=== PATIENT | female | born 1935 | race Hispanic/Latino ===

== ENCOUNTER 2021-02-15 07:13 | Inpatient (IN) | payer MEDICARE ==
[2021-02-15] MEDS ORDERED: MELATONIN 5 MG TAB PO PRN (11:43)
[2021-02-15] MEDS ORDERED: traZODone 50 MG TAB PO SCH (22:00)
[2021-02-16] MEDS ORDERED: traMADol 50 MG TAB PO ONE (00:30)
--- NOTE | 2021-02-16 10:49 | History and Physical Report ---
GP History & Physical - History of Present Illness Date of admission: 02/15/21 Date of Examination: 02/16/21 Reason for Admission: Danger to self, Danger to others, Extensive Evaluation Required, Unable to care for self History of Present Illness: Per Admission Note: Visual hallucinations ( seeing things that were not there. Delusional and combative Jillian Avelar is an 85 y/o female patient who I seen today. The patient is confused, irritable, talking to herself and making threats. She says she is "ready to kill someone just for the fun of it." She is staring at one of the workers. When asking the patient about hallucinations, she says "there are two of them, one's name is Mqiuel." She is unable to give any insight into her history. PAST PSYCHIATRIC HISTORY Unable to obtain PAST MEDICAL HISTORY: Unable to obtain Family Psychiatric History: None reported or documented SOCIAL HISTORY Unable to obtain REVIEW OF SYSTEMS Unable to obtain MENTAL STATUS EXAMINATION General Appearance and Behavior: Age appropriate, good hygiene, wearing appropriate clothes, good eye contact, irritable Cooperation: uncooperative Mood: upset Affect and affective range: angry Thought Process: illogical, impaired Thought Content: hallucinations Speech: Normal volume, Regular rate and rhythm, Suicidal Ideation: unclear Homicidal Ideation: Yes Impulse Control: Unimpaired Insight and Judgment: Poor insight and judgment, Memory: Impaired Attention: Divided Orientation: Confused Assessment (1) Dementia with Behavioral Disturbance Current Visit: Yes Status: Acute Treatment Plan Patient admitted for inpatient psychiatric evaluation, medication adjustment and close monitoring The patient's behavior, mood, sleep and appetite will be closely monitored. Patient enrolled in individual and group therapeutic sessions and encouraged to attend. Patient provided with a safe and structured environment. Patient's physical health needs will be addressed by the Hospitalist. Hospital ist Consulted Labs including CBC, CMP, Lipid profile and Hemoglobin A1C levels ordered for baseline reference Social Assessment will be completed and the Hydraulic And Plumbing Installer will work with patient and family to ensure a suitable and safe disposition Medication adjustment will be made as clinically indicated Start Olanzapine 2.5mg po daily Restarted home medications Usual Wellness Buddhist/Preservation: - Start Trazodone 50 mg po QHS & 50 mg po QHS PRN between 10 PM & 2 AM for insomnia - Start Melatonin 5 mg po QHS to promote circadian rhythm - Start [place]-3 for brain health, reduce impulsivity, and as adjunctive treatment for mood disorder, continue upon discharge given overall benefits. - Start B1 prophylaxis with 200 mg po for 5 days The patient agreed on the treatment plan, understood the risk, benefit, alternative treatment, potential consequence of no treatment, and gave informed consent. Initial Certification Inpatient psych services: I certify that the inpatient psychiatric services are required for treatment that could reasonably be expected to improve the patient's condition. Estimated days: 7 Post hospital care: primary care provider, psychiatric provider Case staffed with Dr. Rincon Legal Status: Voluntary Reaction to Hospitalization: Accepting Medications and Allergies Allergies Allergy/AdvReac Type Severity Reaction Status Date / Time Penicillins Allergy Rash Verified 02/15/21 12:31 Home Medications Medication Instructions Recorded Confirmed Last Taken Type Acetaminophen/Caff/Dihydrocod 1 each PO Q6HR PRN 02/15/21 02/15/21 Unknown History [Ssnpzaox-Mml-Gojpaksjaovct 325] Alendronate Sodium [Fosamax] 70 mg PO QWEEK 02/15/21 02/15/21 Unknown History AtorvaSTATin [Lipitor] 10 mg PO QHS 02/15/21 02/15/21 Unknown History Celecoxib 200 gm PO DAILY 02/15/21 02/15/21 Unknown History Cetirizine HCl [Cetirizine 5mg tab] 10 mg PO DAILY 02/15/21 02/15/21 Unknown History Cyanocobalamin (Vitamin B-12) 1,000 mcg PO DAILY 02/15/21 02/15/21 Unknown History [Vitamin B12] FLUoxetine HCL [PROzac] 40 mg PO QDAY 02/15/21 02/15/21 Unknown History Famotidine [Acid-Pep] 20 mg PO DAILY 02/15/21 02/15/21 Unknown History Ferrous Sulfate [Feosol] 325 mg PO QDAY 02/15/21 02/15/21 Unknown History Fluticasone [Flonase] 1 mcg BN DAILY 02/15/21 02/15/21 Unknown History Gabapentin [Neurontin] 300 mg PO TID 02/15/21 02/15/21 Unknown History Isosorbide Mononitrate [Isosorbide 30 mg PO DAILY 02/15/21 02/15/21 Unknown History Mononitrate ER] LORazepam [Lorazepam] 0.5 mg PO BID PRN 02/15/21 02/15/21 Unknown History oxyCODONE /ACETAMINOPHEN [Percocet 7.5 tab PO Q4HR 02/15/21 02/15/21 Unknown History 5/325] traZODone [Desyrel] 50 mg PO QHS 02/15/21 02/15/21 Unknown History Active Meds: Active Medications Melatonin (Melatonin 5 Mg Tab) 5 mg PO QHS PRN PRN Reason: Sleep Last Admin: 02/15/21 22:18 Dose: 5 mg Documented by: Trazodone HCl (Trazodone 50 Mg Tab) 50 mg PO QHS [facility] Last Admin: 02/15/21 21:08 Dose: 50 mg Documented by: Results - Results Labs/Vitals: Laboratory Last Values POC Glucose 136 mg/dL (70-105) H 02/15/21 16:23 Last Vital Signs Temp 97.8 F 02/16/21 09:07 Pulse 80 02/16/21 09:07 Resp 18 02/16/21 09:07 BP 132/68 02/16/21 09:07 Pulse Ox 97 02/16/21 09:07 Physical Examination - Constitutional Vitals: Vital Signs Temp Pulse Resp BP Pulse Ox 97.8 F 80 18 132/68 97 02/16/21 09:07 02/16/21 09:07 02/16/21 09:07 02/16/21 09:07 02/16/21 09:07 Temperature -Last 24 Hours Temperature 97.8 F Temperature 97.6 F Temperature 97.6 F Temperature 98.2 F Mental Status Exam - Vital signs Last Vital Signs Temp 97.8 F 02/16/21 09:07 Pulse 80 02/16/21 09:07 Resp 18 02/16/21 09:07 BP 132/68 02/16/21 09:07 Pulse Ox 97 02/16/21 09:07 Physician Certification - Certification Statement Physician Certification Statement: This is an acknowledgement statement that JILLIAN AVELAR is a 85 year old F who requires inpatient psychiatric admission for treatment which could reasonably be expected to improve the patient's condition for Estimated period of time patient will need to remain in the hospital: [ ] Plan for post-hospital care: [ ]
[2021-02-16] MEDS ORDERED: LORazepam 0.5 MG TAB PO PRN (10:53)
[2021-02-16] MEDS ORDERED: CYANOCOBALAMIN 2500 MCG PO SCH (11:00)
[2021-02-16] MEDS ORDERED: ALENDRONATE SODIUM 70 MG TAB PO SCH (12:12)
[2021-02-16] MEDS ORDERED: ONDANSETRON 8 MG ODT TAB PO PRN (12:28)
--- NOTE | 2021-02-16 12:34 | Consultation ---
History of Present Illness - Reason for Consult Consult date: 02/16/21 Medical management - History of Present Illness Reason for Admission: Danger to self, Danger to others, Extensive Evaluation Required, Unable to care for self History of Present Illness: Per Admission Note: Visual hallucinations ( seeing things that were not there. Delusional and combative Jillian Modi is an 85 y/o female patient who I seen today. The patient is confused, irritable, talking to herself and making threats. She says she is "ready to kill someone just for the fun of it." She is staring at one of the workers. When asking the patient about hallucinations, she says "there are two of them, one's name is Miquel." She is unable to give any insight into her history. PAST PSYCHIATRIC HISTORY Unable to obtain PAST MEDICAL HISTORY: Anemia, CAD, osteoporosis Family Psychiatric History: None reported or documented SOCIAL HISTORY Unable to obtain Past History Past Medical History: anemia, CAD, other (Osteoporosis) Medications and Allergies Allergies Allergy/AdvReac Type Severity Reaction Status Date / Time Penicillins Allergy Rash Verified 02/15/21 12:31 Home Medications Medication Instructions Recorded Confirmed Last Taken Type Acetaminophen/Caff/Dihydrocod 1 each PO Q6HR PRN 02/15/21 02/15/21 Unknown History [Jumfwvuf-Ebs-Ydovqtiuyyneo 325] Alendronate Sodium [Fosamax] 70 mg PO QWEEK 02/15/21 02/15/21 Unknown History AtorvaSTATin [Lipitor] 10 mg PO QHS 02/15/21 02/15/21 Unknown History Celecoxib 200 gm PO DAILY 02/15/21 02/15/21 Unknown History Cetirizine HCl [Cetirizine 5mg tab] 10 mg PO DAILY 02/15/21 02/15/21 Unknown History Cyanocobalamin (Vitamin B-12) 1,000 mcg PO DAILY 02/15/21 02/15/21 Unknown History [Vitamin B12] FLUoxetine HCL [PROzac] 40 mg PO QDAY 02/15/21 02/15/21 Unknown History Famotidine [Acid-Pep] 20 mg PO DAILY 02/15/21 02/15/21 Unknown History Ferrous Sulfate [Feosol] 325 mg PO QDAY 02/15/21 02/15/21 Unknown History Fluticasone [Flonase] 1 mcg BN DAILY 02/15/21 02/15/21 Unknown History Gabapentin [Neurontin] 300 mg PO TID 02/15/21 02/15/21 Unknown History Isosorbide Mononitrate [Isosorbide 30 mg PO DAILY 02/15/21 02/15/21 Unknown History Mononitrate ER] LORazepam [Lorazepam] 0.5 mg PO BID PRN 02/15/21 02/15/21 Unknown History oxyCODONE /ACETAMINOPHEN [Percocet 7.5 tab PO Q4HR 02/15/21 02/15/21 Unknown History 5/325] traZODone [Desyrel] 50 mg PO QHS 02/15/21 02/15/21 Unknown History Active Meds: Active Medications Alendronate Sodium (Alendronate Sodium 70 Mg Tab) 70 mg PO Mo JEFFREY Atorvastatin Calcium (Atorvastatin 10 Mg Tab) 10 mg PO QHS [facility] Celecoxib (Celecoxib 200 Mg Cap) 200 mg PO DAILY [facility] Cetirizine HCl (Cetirizine 10 Mg Tab) 10 mg PO DAILY [facility] Famotidine (Famotidine 20 Mg Tab) 20 mg PO DAILY [facility] Ferrous Sulfate (Ferrous Sulfate 325 Mg Tab) 325 mg PO QDAY [facility] Fluticasone Propionate (Fluticasone Propionate Nasal Blue 16 Gm) 50 mcg NS DAILY [facility] Gabapentin (Gabapentin 300 Mg Cap) 300 mg PO TID [facility] Isosorbide Mononitrate (Isosorbide Mononitrate Er 30 Mg Tab) 30 mg PO DAILY [facility] Lorazepam (Lorazepam 0.5 Mg Tab) 0.5 mg PO BID PRN PRN Reason: Agitation Melatonin (Melatonin 5 Mg Tab) 5 mg PO QHS PRN PRN Reason: Sleep Last Admin: 02/15/21 22:18 Dose: 5 mg Documented by: Miscellaneous Medication (Acetaminophen/Caff/Dihydrocod [Lllqybgz-Gpm-Fknlszdgmyinq 325]) 1 each PO Q6HR PRN PRN Reason: Pain, Mild (1-3) Miscellaneous Medication (Cyanocobalamin (Vitamin B-12) [Vitamin B12]) 1,000 mcg PO DAILY [facility] Miscellaneous Medication (Fluoxetine Hcl [Prozac]) 40 mg PO QDAY [facility] Olanzapine (Olanzapine 2.5 Mg Tab) 2.5 mg PO QDAY [facility] Ondansetron HCl (Ondansetron 4 Mg Odt Tab) 4 mg PO Q8H PRN PRN Reason: Nausea And Vomiting Ondansetron HCl (Ondansetron 8 Mg Odt Tab) 8 mg PO Q8H PRN PRN Reason: Nausea And Vomiting Pantoprazole Sodium (Pantoprazole 40 Mg Tab) 40 mg PO QDAC [facility] Trazodone HCl (Trazodone 50 Mg Tab) 50 mg PO QHS [facility] Review of Systems Gastrointestinal: abdominal pain, nausea, vomiting Musculoskeletal: other (Left shoulder pain) Exam - Constitutional Vitals: Temp Pulse Resp BP Pulse Ox 97.8 F 80 18 132/68 97 02/16/21 09:07 02/16/21 09:07 02/16/21 09:07 02/16/21 09:07 02/16/21 09:07 General appearance: Present: no acute distress, well-nourished - EENT Eyes: Present: PERRL ENT: hearing intact, clear oral mucosa - Neck Neck: Present: supple, normal ROM - Respiratory Respiratory effort: normal Respiratory: bilateral: diminished - Cardiovascular Heart Sounds: Present: S1 & S2. Absent: rub, click - Extremities Extremities: pulses symmetrical, No edema Peripheral Pulses: within normal limits - Abdominal General gastrointestinal: Present: soft, non-tender, non-distended, normal bowel sounds Female genitourinary: Present: normal - Integumentary Integumentary: Present: clear, warm, dry - Musculoskeletal Musculoskeletal: gait normal, strength equal bilaterally - Psychiatric Psychiatric: agitated - Neurologic Neurologic: CNII-XII intact, moves all extremities - Allied Health Allied health notes reviewed: nursing Results - Labs Labs: Abnormal lab results 02/15/21 Range/Units 16:23 POC Glucose 136 H (70-105) mg/dL Assessment and Plan Assessment and plan 1. Visual hallucination9 seeing things that were not there). Delusional combative Psych medication as per psych doctors Lorazepam 0.5 mg p.o. twice daily as needed Fluoxetine 40 mg p.o. daily. Trazodone 50 mg p.o. nightly 2. Nausea vomiting abdominal pain Protonix 40 mg p.o. daily Zofran 4 mg p.o. every 8 hours as needed We will check CBC BMP 3. Anemia patient is on ferrous sulfate 325 mg p.o. daily. Vitamin B12 1000 mcg p.o. daily 4. CAD Patient is on Imdur 30 mg p.o. daily Lipitor 10 mg p.o. nightly 5. Left shoulder pain patient is on celecoxib 200 mg p.o. daily We will do a x-ray of the left shoulder 6. Osteoporosis Fosamax 70 mg p.o. weekly . Home Medications Medication Instructions Recorded Confirmed Last Taken Type Acetaminophen/Caff/Dihydrocod 1 each PO Q6HR PRN 02/15/21 02/15/21 Unknown History [Oeqzehrw-Mkj-Zpnurycoenhgg 325] Alendronate Sodium [Fosamax] 70 mg PO QWEEK 02/15/21 02/15/21 Unknown History AtorvaSTATin [Lipitor] 10 mg PO QHS 02/15/21 02/15/21 Unknown History Celecoxib 200 gm PO DAILY 02/15/21 02/15/21 Unknown History Cetirizine HCl [Cetirizine 5mg tab] 10 mg PO DAILY 02/15/21 02/15/21 Unknown History Cyanocobalamin (Vitamin B-12) 1,000 mcg PO DAILY 02/15/21 02/15/21 Unknown History [Vitamin B12] FLUoxetine HCL [PROzac] 40 mg PO QDAY 02/15/21 02/15/21 Unknown History Famotidine [Acid-Pep] 20 mg PO DAILY 02/15/21 02/15/21 Unknown History Ferrous Sulfate [Feosol] 325 mg PO QDAY 02/15/21 02/15/21 Unknown History Fluticasone [Flonase] 1 mcg BN DAILY 02/15/21 02/15/21 Unknown History Gabapentin [Neurontin] 300 mg PO TID 02/15/21 02/15/21 Unknown History Isosorbide Mononitrate [Isosorbide 30 mg PO DAILY 02/15/21 02/15/21 Unknown History Mononitrate ER] LORazepam [Lorazepam] 0.5 mg PO BID PRN 02/15/21 02/15/21 Unknown History oxyCODONE /ACETAMINOPHEN [Percocet 7.5 tab PO Q4HR 02/15/21 02/15/21 Unknown History 5/325] traZODone [Desyrel] 50 mg PO QHS 02/15/21 02/15/21 Unknown History
[2021-02-16] MEDS: GABAPENTIN 300 MG CAP PO SCH ×2 (13:37→20:59)
[2021-02-16] MEDS: FLUoxetine 20 MG CAP PO SCH (13:37)
[2021-02-16] MEDS: FERROUS SULFATE 325 MG TAB PO SCH (13:37)
[2021-02-16] MEDS: ONDANSETRON 4 MG ODT TAB PO PRN (13:37)
[2021-02-16] MEDS: FAMOTIDINE 20 MG TAB PO SCH (13:38)
[2021-02-16] MEDS: CETIRIZINE 10 MG TAB PO SCH (13:38)
[2021-02-16] MEDS: traZODone 50 MG TAB PO SCH (21:21)
[2021-02-17] MEDS: FAMOTIDINE 20 MG TAB PO SCH (09:08)
[2021-02-17] MEDS: ONDANSETRON 4 MG ODT TAB PO PRN (09:08)
[2021-02-17] MEDS: FERROUS SULFATE 325 MG TAB PO SCH (09:08)
[2021-02-17] MEDS: GABAPENTIN 300 MG CAP PO SCH ×3 (09:08→20:44)
[2021-02-17] MEDS: FLUoxetine 20 MG CAP PO SCH (09:08)
[2021-02-17] MEDS: CYANOCOBALAMIN (VIT B-12) 1000 MCG TAB PO SCH (09:08)
[2021-02-17] MEDS: CELECOXIB 200 MG CAP PO SCH (09:09)
[2021-02-17] MEDS: FLUTICASONE PROPIONATE NASAL SPRAY 16 GM NS SCH (09:12)
[2021-02-17] MEDS: PANTOPRAZOLE 40 MG TAB PO SCH (09:15)
[2021-02-17] MEDS: CETIRIZINE 10 MG TAB PO SCH (09:15)
--- NOTE | 2021-02-17 10:59 | Progress Note ---
Subjective Date of service: 02/17/21 Principal diagnosis: Dementia with Behavior Disturabance Subjective Comment: Per Nurse Note: Patient is alert and oriented to person, calm and cooperative, patient was irritable this morning, pt was observed taking to her self, and very intrusive, she was medication compliant, poor appetite, vomited x1 few hrs after breakfast, pt was seen by the hospitalist. Zofran 4mg po given as ordered with good effect, saltine crackers with soup and fluid offered, pt tolerate well, no distress noted. will continue to monitor. The patient was seen today, she says she's doing okay and is tired. The patient is still making threats. She denies suicidal thoughts, but when asking the patient if she wanted to hurt anyone else, she replies "yes, I do. I want to kill someone." REVIEW OF SYSTEMS Unable to obtain MENTAL STATUS EXAMINATION General Appearance and Behavior: Age appropriate, good hygiene, wearing appropriate clothes, good eye contact, irritable Cooperation: uncooperative Mood: upset Affect and affective range: angry Thought Process: illogical, impaired Thought Content: hallucinations Speech: Normal volume, Regular rate and rhythm, Suicidal Ideation: unclear Homicidal Ideation: Yes Impulse Control: Unimpaired Insight and Judgment: Poor insight and judgment, Memory: Impaired Attention: Divided Orientation: Confused Assessment (1) Dementia with Behavioral Disturbance Current Visit: Yes Status: Acute Treatment Plan Patient admitted for inpatient psychiatric evaluation, medication adjustment and close monitoring The patient's behavior, mood, sleep and appetite will be closely monitored. Patient enrolled in individual and group therapeutic sessions and encouraged to attend. Patient provided with a safe and structured environment. Patient's physical health needs will be addressed by the Hospitalist. Hospitalist Consulted Labs including CBC, CMP, Lipid profile and Hemoglobin A1C levels ordered for baseline reference Social Assessment will be completed and the Butting Saw Operator will work with patient and family to ensure a suitable and safe disposition Medication adjustment will be made as clinically indicated Increase Olanzapine 5mg po daily yesterday Start Mirtazepin 7.5mg po qhs Usual Wellness Jain/Preservation: - Start Trazodone 50 mg po QHS & 50 mg po QHS PRN between 10 PM & 2 AM for insomnia - Start Melatonin 5 mg po QHS to promote circadian rhythm - Start [place]-3 for brain health, reduce impulsivity, and as adjunctive treatment for mood disorder, continue upon discharge given overall benefits. - Start B1 prophylaxis with 200 mg po for 5 days The patient agreed on the treatment plan, understood the risk, benefit, alternative treatment, potential consequence of no treatment, and gave informed consent. Initial Certification Inpatient psych services: I certify that the inpatient psychiatric services are required for treatment that could reasonably be expected to improve the patient's condition. Estimated days: 7 Post hospital care: primary care provider, psychiatric provider Case staffed with Dr. Rincon Medications and Allergies Allergies Allergy/AdvReac Type Severity Reaction Status Date / Time Penicillins Allergy Rash Verified 02/15/21 12:31 Home Medications Medication Instructions Recorded Confirmed Last Taken Type Acetaminophen/Caff/Dihydrocod 1 each PO Q6HR PRN 02/15/21 02/15/21 Unknown History [Uxnxtqxl-Gvs-Xacutsmisjjgm 325] Alendronate Sodium [Fosamax] 70 mg PO QWEEK 02/15/21 02/15/21 Unknown History AtorvaSTATin [Lipitor] 10 mg PO QHS 02/15/21 02/15/21 Unknown History Celecoxib 200 gm PO DAILY 02/15/21 02/15/21 Unknown History Cetirizine HCl [Cetirizine 5mg tab] 10 mg PO DAILY 02/15/21 02/15/21 Unknown History Cyanocobalamin (Vitamin B-12) 1,000 mcg PO DAILY 02/15/21 02/15/21 Unknown History [Vitamin B12] FLUoxetine HCL [PROzac] 40 mg PO QDAY 02/15/21 02/15/21 Unknown History Famotidine [Acid-Pep] 20 mg PO DAILY 02/15/21 02/15/21 Unknown History Ferrous Sulfate [Feosol] 325 mg PO QDAY 02/15/21 02/15/21 Unknown History Fluticasone [Flonase] 1 mcg BN DAILY 02/15/21 02/15/21 Unknown History Gabapentin [Neurontin] 300 mg PO TID 02/15/21 02/15/21 Unknown History Isosorbide Mononitrate [Isosorbide 30 mg PO DAILY 02/15/21 02/15/21 Unknown History Mononitrate ER] LORazepam [Lorazepam] 0.5 mg PO BID PRN 02/15/21 02/15/21 Unknown History oxyCODONE /ACETAMINOPHEN [Percocet 7.5 tab PO Q4HR 02/15/21 02/15/21 Unknown History 5/325] traZODone [Desyrel] 50 mg PO QHS 02/15/21 02/15/21 Unknown History Active Meds: Active Medications Alendronate Sodium (Alendronate Sodium 70 Mg Tab) 70 mg PO Mo [facility] Atorvastatin Calcium (Atorvastatin 10 Mg Tab) 10 mg PO QHS [facility] Last Admin: 02/16/21 21:21 Dose: 10 mg Documented by: Celecoxib (Celecoxib 200 Mg Cap) 200 mg PO DAILY [facility] Last Admin: 02/17/21 09:09 Dose: 200 mg Documented by: Cetirizine HCl (Cetirizine 10 Mg Tab) 10 mg PO DAILY [facility] Last Admin: 02/17/21 09:15 Dose: 10 mg Documented by: Cyanocobalamin (Cyanocobalamin (Vit B-12) 1000 Mcg Tab) 1,000 mcg PO DAILY [facility] Last Admin: 02/17/21 09:08 Dose: 1,000 mcg Documented by: Famotidine (Famotidine 20 Mg Tab) 20 mg PO DAILY [facility] Last Admin: 02/17/21 09:08 Dose: 20 mg Documented by: Ferrous Sulfate (Ferrous Sulfate 325 Mg Tab) 325 mg PO QDAY [facility] Last Admin: 02/17/21 09:08 Dose: 325 mg Documented by: Fluoxetine HCl (Fluoxetine 20 Mg Cap) 40 mg PO QDAY [facility] Last Admin: 02/17/21 09:08 Dose: 40 mg Documented by: Fluticasone Propionate (Fluticasone Propionate Nasal [place] 16 Gm) 50 mcg NS DAILY [facility] Last Admin: 02/17/21 09:12 Dose: 50 mcg Documented by: Gabapentin (Gabapentin 300 Mg Cap) 300 mg PO TID [facility] Last Admin: 02/17/21 09:08 Dose: 300 mg Documented by: Isosorbide Mononitrate (Isosorbide Mononitrate Er 30 Mg Tab) 30 mg PO DAILY [facility] Last Admin: 02/17/21 09:10 Dose: 30 mg Documented by: Lorazepam (Lorazepam 0.5 Mg Tab) 0.5 mg PO BID PRN PRN Reason: Agitation Melatonin (Melatonin 5 Mg Tab) 5 mg PO QHS PRN PRN Reason: Sleep Last Admin: 02/15/21 22:18 Dose: 5 mg Documented by: Miscellaneous Medication (Acetaminophen/Caff/Dihydrocod [Cnoyabwy-Eak-Mb hydrocodein 325]) 1 each PO Q6HR PRN PRN Reason: Pain, Mild (1-3) Olanzapine (Olanzapine 2.5 Mg Tab) 2.5 mg PO QDAY [facility] Last Admin: 02/17/21 09:08 Dose: 2.5 mg Documented by: Ondansetron HCl (Ondansetron 4 Mg Odt Tab) 4 mg PO Q8H PRN PRN Reason: Nausea And Vomiting Last Admin: 02/17/21 09:08 Dose: 4 mg Documented by: Ondansetron HCl (Ondansetron 8 Mg Odt Tab) 8 mg PO Q8H PRN PRN Reason: Nausea And Vomiting Pantoprazole Sodium (Pantoprazole 40 Mg Tab) 40 mg PO QDAC [facility] Last Admin: 02/17/21 09:15 Dose: 40 mg Documented by: Trazodone HCl (Trazodone 50 Mg Tab) 50 mg PO QHS [facility] Last Admin: 02/16/21 21:21 Dose: 50 mg Documented by: Results - Results Labs/Vitals: Laboratory Last Values POC Glucose 136 mg/dL (70-105) H 02/15/21 16:23 Hemoglobin A1c 5.4 % (4-6) 02/17/21 09:54 Last Vital Signs Temp 98.4 F 02/17/21 07:32 Pulse 84 02/17/21 09:10 Resp 18 02/17/21 09:09 BP 141/80 02/17/21 09:10 Pulse Ox 97 02/17/21 07:32
[2021-02-17 11:02] LABS: Basophils % (Auto) 0.5 % (0.0-1.8); Eosinophils # (Auto) 0.1 K/mm3 (0.0-0.4); Hematocrit 43.1 % (30.3-42.9); Hemoglobin 14.3 gm/dl (10.1-14.3); Lymphocytes % (Auto) 18.7 % (13.4-35.0); Mean Corpuscular HGB Conc 33 % (30-34); Mean Corpuscular Volume 88 fl (79-97); Monocytes # (Auto) 0.6 K/mm3 (0.0-0.8); Monocytes % (Auto) 10.1 % (0.0-7.3); Platelet Count 228 K/mm3 (140-440); Red Cell Distribution Width 16.3 % (13.2-15.2)
[2021-02-17 11:10] LABS: Albumin 3.7 g/dL (3.9-5); Calcium 9.9 mg/dL (8.4-10.2); Chol/HDL Ratio 3.77 %
--- NOTE | 2021-02-17 11:35 | Progress Note ---
Assessment and Plan - Patient Problems (1) Vascular dementia with behavior disturbance Current Visit: Yes Status: Acute Plan to address problem: Verbal prompting, verbal redirection, benzodiazepine therapy as clinically indicated. (2) Cerebral atherosclerosis Current Visit: Yes Status: Acute Plan to address problem: Risk factor reduction, antiplatelet therapy as clinically indicated, supportive care. (3) Hypertension Current Visit: Yes Status: Acute Qualifiers: Hypertension type: essential hypertension Qualified Code(s): I10 - Essential (primary) hypertension Plan to address problem: Monitor blood pressure every shift, continue medical management. (4) CAD (coronary artery disease) Current Visit: Yes Status: Acute Plan to address problem: Antiplatelet therapy as clinically indicated, risk factor reduction, supportive care. (5) Osteoporosis Current Visit: Yes Status: Acute Plan to address problem: Continue alendronate, supportive care. History Interval history: 85 YO Female with Vascular Dementia with Behavioral Disturbance, Cerebral Atherosclerosis, Anemia, CAD, Osteoperosis admitted to [facility] for Psychiatric stabilization. Patient resting comfortably while sitting in the dayroom. No reported nursing events. Patient denies pain. Hospitalist Physical - Constitutional Vitals: Temp Pulse Resp BP Pulse Ox 98.4 F 84 18 141/80 97 02/17/21 07:32 02/17/21 09:10 02/17/21 09:09 02/17/21 09:10 02/17/21 07:32 General appearance: Present: no acute distress, well-nourished - EENT Eyes: Present: PERRL ENT: hearing decreased - Neck Neck: Present: supple - Respiratory Respiratory effort: normal Respiratory: bilateral: CTA - Cardiovascular Rhythm: regular Heart Sounds: Present: S1 & S2 - Extremities Extremities: no ischemia Peripheral Pulses: within normal limits - Abdominal General gastrointestinal: soft, non-tender, non-distended - Integumentary Integumentary: Present: clear, dry - Psychiatric Psychiatric: cooperative - Neurologic Neurologic: CNII-XII intact Results - Labs CBC & Chem 7: 02/17/21 09:54 02/17/21 09:54 Labs: Laboratory Last Values WBC 5.6 K/mm3 (4.5-11.0) 02/17/21 09:54 RBC 4.90 M/mm3 (3.65-5.03) 02/17/21 09:54 Hgb 14.3 gm/dl (10.1-14.3) 02/17/21 09:54 Hct 43.1 % (30.3-42.9) H 02/17/21 09:54 MCV 88 fl (79-97) 02/17/21 09:54 MCH 29 pg (28-32) 02/17/21 09:54 MCHC 33 % (30-34) 02/17/21 09:54 RDW 16.3 % (13.2-15.2) H 02/17/21 09:54 Plt Count 228 K/mm3 (140-440) 02/17/21 09:54 Lymph % (Auto) 18.7 % (13.4-35.0) 02/17/21 09:54 [place] % (Auto) 10.1 % (0.0-7.3) H 02/17/21 09:54 Eos % (Auto) 1.0 % (0.0-4.3) 02/17/21 09:54 Baso % (Auto) 0.5 % (0.0-1.8) 02/17/21 09:54 Lymph # (Auto) 1.0 K/mm3 (1.2-5.4) L 02/17/21 09:54 [place] # (Auto) 0.6 K/mm3 (0.0-0.8) 02/17/21 09:54 Eos # (Auto) 0.1 K/mm3 (0.0-0.4) 02/17/21 09:54 Baso # (Auto) 0.0 K/mm3 (0.0-0.1) 02/17/21 09:54 Seg Neutrophils % 69.7 % (40.0-70.0) 02/17/21 09:54 Seg Neutrophils # 3.9 K/mm3 (1.8-7.7) 02/17/21 09:54 Sodium 138 mmol/L (137-145) 02/17/21 09:54 Potassium 4.5 mmol/L (3.6-5.0) 02/17/21 09:54 Chloride 103.9 mmol/L (98-107) 02/17/21 09:54 Carbon Dioxide 25 mmol/L (22-30) 02/17/21 09:54 Anion Gap 14 mmol/L 02/17/21 09:54 BUN 22 mg/dL (7-17) H 02/17/21 09:54 Creatinine 1.1 mg/dL (0.6-1.2) 02/17/21 09:54 Estimated GFR 47 ml/min 02/17/21 09:54 BUN/Creatinine Ratio 20 % 02/17/21 09:54 Glucose 95 mg/dL (65-100) 02/17/21 09:54 POC Glucose 136 mg/dL (70-105) H 02/15/21 16:23 Hemoglobin A1c 5.4 % (4-6) 02/17/21 09:54 Calcium 9.9 mg/dL (8.4-10.2) 02/17/21 09:54 Total Bilirubin 0.50 mg/dL (0.1-1.2) 02/17/21 09:54 AST 89 units/L (5-40) H 02/17/21 09:54 ALT 57 units/L (7-56) H 02/17/21 09:54 Alkaline Phosphatase 105 units/L (35-129) 02/17/21 09:54 Total Protein 7.5 g/dL (6.3-8.2) 02/17/21 09:54 Albumin 3.7 g/dL (3.9-5) L 02/17/21 09:54 Albumin/Globulin Ratio 1.0 % 02/17/21 09:54 Triglycerides 101 mg/dL (2-149) 02/17/21 09:54 Cholesterol 181 mg/dL (50-199) 02/17/21 09:54 LDL Cholesterol Direct 119 mg/dL (50-130) 02/17/21 09:54 HDL Cholesterol 48 mg/dL (40-59) 02/17/21 09:54 Cholesterol/HDL Ratio 3.77 % 02/17/21 09:54 TSH 1.050 mlU/mL (0.270-4.200) 02/17/21 09:54 Shankar/IV: Voiding Method Toilet Active Medications - Current Medications Current Medications: Generic Name Dose Route Start Last Admin Trade Name Freq PRN Reason Stop Dose Admin Alendronate Sodium 70 mg 02/23/21 06:30 Alendronate Sodium 70 Mg Tab PO Mo JEFFREY Atorvastatin Calcium 10 mg 02/16/21 22:00 02/16/21 21:21 Atorvastatin 10 Mg Tab PO 10 mg QHS JEFFREY Administration Celecoxib 200 mg 02/17/21 10:00 02/17/21 09:09 Celecoxib 200 Mg Cap PO 200 mg DAILY JEFFREY Administration Cetirizine HCl 10 mg 02/16/21 11:00 02/17/21 09:15 Cetirizine 10 Mg Tab PO 10 mg DAILY JEFFREY Administration Cyanocobalamin 1,000 mcg 02/17/21 10:00 02/17/21 09:08 Cyanocobalamin (Vit B-12) 1000 Mcg Tab PO 1,000 mcg DAILY JEFFREY Administration Famotidine 20 mg 02/16/21 11:00 02/17/21 09:08 Famotidine 20 Mg Tab PO 20 mg DAILY JEFFREY Administration Ferrous Sulfate 325 mg 02/16/21 11:00 02/17/21 09:08 Ferrous Sulfate 325 Mg Tab PO 325 mg QDAY JEFFREY Administration Fluoxetine HCl 40 mg 02/16/21 11:00 02/17/21 09:08 Fluoxetine 20 Mg Cap PO 40 mg QDAY JEFFREY Administration Fluticasone Propionate 50 mcg 02/17/21 10:00 02/17/21 09:12 Fluticasone Propionate Nasal [place] 16 Gm NS 50 mcg DAILY JEFFREY Administration Gabapentin 300 mg 02/16/21 14:00 02/17/21 09:08 Gabapentin 300 Mg Cap PO 300 mg TID JEFFREY Administration Isosorbide Mononitrate 30 mg 02/16/21 11:00 02/17/21 09:10 Isosorbide Mononitrate Er 30 Mg Tab PO 30 mg DAILY JEFFREY Administration Lorazepam 0.5 mg 02/16/21 10:53 Lorazepam 0.5 Mg Tab PO BID PRN Agitation Melatonin 5 mg 02/15/21 11:43 02/15/21 22:18 Melatonin 5 Mg Tab PO 5 mg QHS PRN Administration Sleep Mirtazapine 7.5 mg 02/17/21 22:00 Mirtazapine 15 Mg Tab PO QHS [facility] Miscellaneous Medication 1 each 02/16/21 10:53 Acetaminophen/Caff/Dihydrocod [Ayrbxlvp-Avw-Kzxnxngfdehms 325] PO Q6HR PRN Pain, Mild (1-3) Olanzapine 5 mg 02/18/21 10:00 Olanzapine 5 Mg Tab PO QDAY [facility] Ondansetron HCl 4 mg 02/16/21 11:53 02/17/21 09:08 Ondansetron 4 Mg Odt Tab PO 4 mg Q8H PRN Administration Nausea And Vomiting Ondansetron HCl 8 mg 02/16/21 12:28 Ondansetron 8 Mg Odt Tab PO Q8H PRN Nausea And Vomiting Pantoprazole Sodium 40 mg 02/17/21 07:30 02/17/21 09:15 Pantoprazole 40 Mg Tab PO 40 mg QDAC JEFFREY Administration Trazodone HCl 50 mg 02/16/21 22:00 02/16/21 21:21 Trazodone 50 Mg Tab PO 50 mg QHS JEFFREY Administration
[2021-02-17] MEDS: MIRTAZAPINE 15 MG TAB PO SCH (21:20)
[2021-02-17] MEDS: traZODone 50 MG TAB PO SCH (21:21)
--- NOTE | 2021-02-18 09:24 | Progress Note ---
Subjective Date of service: 02/18/21 Principal diagnosis: Dementia with Behavior Disturabance Subjective Comment: The patient was seen today, she is sitting at the table talking loudly to herself. She is changing her voice like the characters she is referring to. She is also having auditory hallucinations. She asks me who is that standing behind me. There was no one there. She verbalized feeling suicidal when asked. But denies homicidal ideation this time. REVIEW OF SYSTEMS Unable to obtain MENTAL STATUS EXAMINATION General Appearance and Behavior: Age appropriate, good hygiene, wearing appropriate clothes, good eye contact, irritable Cooperation: uncooperative Mood: upset Affect and affective range: angry Thought Process: illogical, impaired Thought Content: hallucinations Speech: Normal volume, Regular rate and rhythm, Suicidal Ideation: unclear Homicidal Ideation: Yes Impulse Control: Unimpaired Insight and Judgment: Poor insight and judgment, Memory: Impaired Attention: Divided Orientation: Confused Assessment (1) Dementia with Behavioral Disturbance Current Visit: Yes Status: Acute Treatment Plan Patient admitted for inpatient psychiatric evaluation, medication adjustment and close monitoring The patient's behavior, mood, sleep and appetite will be closely monitored. Patient enrolled in individual and group therapeutic sessions and encouraged to attend. Patient provided with a safe and structured environment. Patient's physical health needs will be addressed by the Hospitalist. Hospitalist Consulted Labs including CBC, CMP, Lipid profile and Hemoglobin A1C levels ordered for baseline reference Social Assessment will be completed and the Commercial Construction Superintendent will work with patient and family to ensure a suitable and safe disposition Medication adjustment will be made as clinically indicated Increase Olanzapine 7.5mg po daily today Start Mirtazepin 7.5mg po qhs yesterday Usual Wellness [employer]/Preservation: - Start Trazodone 50 mg po QHS & 50 mg po QHS PRN between 10 PM & 2 AM for insomnia - Start Melatonin 5 mg po QHS to promote circadian rhythm - Start [place]-3 for brain health, reduce impulsivity, and as adjunctive treatment for mood disorder, continue upon discharge given overall benefits. - Start B1 prophylaxis with 200 mg po for 5 days The patient agreed on the treatment plan, understood the risk, benefit, alternative treatment, potential consequence of no treatment, and gave informed consent. Initial Certification Inpatient psych services: I certify that the inpatient psychiatric services are required for treatment that could reasonably be expected to improve the patient's condition. Estimated days: 5 Post hospital care: primary care provider, psychiatric provider Case staffed with Dr. Rincon Medications and Allergies Allergies Allergy/AdvReac Type Severity Reaction Status Date / Time Penicillins Allergy Rash Verified 02/15/21 12:31 Home Medications Medication Instructions Recorded Confirmed Last Taken Type Acetaminophen/Caff/Dihydrocod 1 each PO Q6HR PRN 02/15/21 02/15/21 Unknown History [Nqqrmjvv-Ljc-Mhopmzumfaxnv 325] Alendronate Sodium [Fosamax] 70 mg PO QWEEK 02/15/21 02/15/21 Unknown History AtorvaSTATin [Lipitor] 10 mg PO QHS 02/15/21 02/15/21 Unknown History Celecoxib 200 gm PO DAILY 02/15/21 02/15/21 Unknown History Cetirizine HCl [Cetirizine 5mg tab] 10 mg PO DAILY 02/15/21 02/15/21 Unknown History Cyanocobalamin (Vitamin B-12) 1,000 mcg PO DAILY 02/15/21 02/15/21 Unknown History [Vitamin B12] FLUoxetine HCL [PROzac] 40 mg PO QDAY 02/15/21 02/15/21 Unknown History Famotidine [Acid-Pep] 20 mg PO DAILY 02/15/21 02/15/21 Unknown History Ferrous Sulfate [Feosol] 325 mg PO QDAY 02/15/21 02/15/21 Unknown History Fluticasone [Flonase] 1 mcg BN DAILY 02/15/21 02/15/21 Unknown History Gabapentin [Neurontin] 300 mg PO TID 02/15/21 02/15/21 Unknown History Isosorbide Mononitrate [Isosorbide 30 mg PO DAILY 02/15/21 02/15/21 Unknown History Mononitrate ER] LORazepam [Lorazepam] 0.5 mg PO BID PRN 02/15/21 02/15/21 Unknown History oxyCODONE /ACETAMINOPHEN [Percocet 7.5 tab PO Q4HR 02/15/21 02/15/21 Unknown History 5/325] traZODone [Desyrel] 50 mg PO QHS 02/15/21 02/15/21 Unknown History Active Meds: Active Medications Alendronate Sodium (Alendronate Sodium 70 Mg Tab) 70 mg PO Mo JEFFREY Atorvastatin Calcium (Atorvastatin 10 Mg Tab) 10 mg PO QHS ON LICENSE OF [facility] Last Admin: 02/17/21 21:21 Dose: 10 mg Documented by: Celecoxib (Celecoxib 200 Mg Cap) 200 mg PO DAILY ON LICENSE OF [facility] Last Admin: 02/17/21 09:09 Dose: 200 mg Documented by: Cetirizine HCl (Cetirizine 10 Mg Tab) 10 mg PO DAILY ON LICENSE OF [facility] Last Admin: 02/17/21 09:15 Dose: 10 mg Documented by: Cyanocobalamin (Cyanocobalamin (Vit B-12) 1000 Mcg Tab) 1,000 mcg PO DAILY ON [facility] OF [facility] Last Admin: 02/17/21 09:08 Dose: 1,000 mcg Documented by: Famotidine (Famotidine 20 Mg Tab) 20 mg PO DAILY ON LICENSE OF [facility] Last Admin: 02/17/21 09:08 Dose: 20 mg Documented by: Ferrous Sulfate (Ferrous Sulfate 325 Mg Tab) 325 mg PO QDAY ON LICENSE OF [facility] Last Admin: 02/17/21 09:08 Dose: 325 mg Documented by: Fluoxetine HCl (Fluoxetine 20 Mg Cap) 40 mg PO QDAY ON LICENSE OF [facility] Last Admin: 02/17/21 09:08 Dose: 40 mg Documented by: Fluticasone Propionate (Fluticasone Propionate Nasal [place] 16 Gm) 50 mcg NS DAILY ON [facility] OF [facility] Last Admin: 02/17/21 09:12 Dose: 50 mcg Documented by: Gabapentin (Gabapentin 300 Mg Cap) 300 mg PO TID ON [facility] OF [facility] Last Admin: 02/17/21 20:44 Dose: 300 mg Documented by: Isosorbide Mononitrate (Isosorbide Mononitrate Er 30 Mg Tab) 30 mg PO DAILY ON [facility] Last Admin: 02/17/21 09:10 Dose: 30 mg Documented by: Lorazepam (Lorazepam 0.5 Mg Tab) 0.5 mg PO BID PRN PRN Reason: Agitation Melatonin (Melatonin 5 Mg Tab) 5 mg PO QHS PRN PRN Reason: Sleep Last Admin: 02/15/21 22:18 Dose: 5 mg Documented by: Mirtazapine (Mirtazapine 15 Mg Tab) 7.5 mg PO QHS ON [facility] OF [facility] Last Admin: 02/17/21 21:20 Dose: 7.5 mg Documented by: Miscellaneous Medication (Acetaminophen/Caff/Dihydrocod [Askitflr-Gzx-Pmroaqmgcinzi 325]) 1 each PO Q6HR PRN PRN Reason: Pain, Mild (1-3) Olanzapine (Olanzapine 5 Mg Tab) 5 mg PO QDAY ON LICENSE OF [facility] Ondansetron HCl (Ondansetron 4 Mg Odt Tab) 4 mg PO Q8H PRN PRN Reason: Nausea And Vomiting Last Admin: 02/17/21 09:08 Dose: 4 mg Documented by: Ondansetron HCl (Ondansetron 8 Mg Odt Tab) 8 mg PO Q8H PRN PRN Reason: Nausea And Vomiting Pantoprazole Sodium (Pantoprazole 40 Mg Tab) 40 mg PO QDAC ON [facility] OF [facility] Last Admin: 02/17/21 09:15 Dose: 40 mg Documented by: Trazodone HCl (Trazodone 50 Mg Tab) 50 mg PO QHS ON [facility] OF [facility] Last Admin: 02/17/21 21:21 Dose: 50 mg Documented by: Results - Results Labs/Vitals: Laboratory Last Values WBC 5.6 K/mm3 (4.5-11.0) 02/17/21 09:54 RBC 4.90 M/mm3 (3.65-5.03) 02/17/21 09:54 Hgb 14.3 gm/dl (10.1-14.3) 02/17/21 09:54 Hct 43.1 % (30.3-42.9) H 02/17/21 09:54 MCV 88 fl (79-97) 02/17/21 09:54 MCH 29 pg (28-32) 02/17/21 09:54 MCHC 33 % (30-34) 02/17/21 09:54 RDW 16.3 % (13.2-15.2) H 02/17/21 09:54 Plt Count 228 K/mm3 (140-440) 02/17/21 09:54 Lymph % (Auto) 18.7 % (13.4-35.0) 02/17/21 09:54 [place] % (Auto) 10.1 % (0.0-7.3) H 02/17/21 09:54 Eos % (Auto) 1.0 % (0.0-4.3) 02/17/21 09:54 Baso % (Auto) 0.5 % (0.0-1.8) 02/17/21 09:54 Lymph # (Auto) 1.0 K/mm3 (1.2-5.4) L 02/17/21 09:54 [place] # (Auto) 0.6 K/mm3 (0.0-0.8) 02/17/21 09:54 Eos # (Auto) 0.1 K/mm3 (0.0-0.4) 02/17/21 09:54 Baso # (Auto) 0.0 K/mm3 (0.0-0.1) 02/17/21 09:54 Seg Neutrophils % 69.7 % (40.0-70.0) 02/17/21 09:54 Seg Neutrophils # 3.9 K/mm3 (1.8-7.7) 02/17/21 09:54 Sodium 138 mmol/L (137-145) 02/17/21 09:54 Potassium 4.5 mmol/L (3.6-5.0) 02/17/21 09:54 Chloride 103.9 mmol/L (98-107) 02/17/21 09:54 Carbon Dioxide 25 mmol/L (22-30) 02/17/21 09:54 Anion Gap 14 mmol/L 02/17/21 09:54 BUN 22 mg/dL (7-17) H 02/17/21 09:54 Creatinine 1.1 mg/dL (0.6-1.2) 02/17/21 09:54 Estimated GFR 47 ml/min 02/17/21 09:54 BUN/Creatinine Ratio 20 % 02/17/21 09:54 Glucose 95 mg/dL (65-100) 02/17/21 09:54 POC Glucose 136 mg/dL (70-105) H 02/15/21 16:23 Hemoglobin A1c 5.4 % (4-6) 02/17/21 09:54 Calcium 9.9 mg/dL (8.4-10.2) 02/17/21 09:54 Total Bilirubin 0.50 mg/dL (0.1-1.2) 02/17/21 09:54 AST 89 units/L (5-40) H 02/17/21 09:54 ALT 57 units/L (7-56) H 02/17/21 09:54 Alkaline Phosphatase 105 units/L (35-129) 02/17/21 09:54 Total Protein 7.5 g/dL (6.3-8.2) 02/17/21 09:54 Albumin 3.7 g/dL (3.9-5) L 02/17/21 09:54 Albumin/Globulin Ratio 1.0 % 02/17/21 09:54 Triglycerides 101 mg/dL (2-149) 02/17/21 09:54 Cholesterol 181 mg/dL (50-199) 02/17/21 09:54 LDL Cholesterol Direct 119 mg/dL (50-130) 02/17/21 09:54 HDL Cholesterol 48 mg/dL (40-59) 02/17/21 09:54 Cholesterol/HDL Ratio 3.77 % 02/17/21 09:54 TSH 1.050 mlU/mL (0.270-4.200) 02/17/21 09:54 Last Vital Signs Temp 98.1 F 02/18/21 08:29 Pulse 84 02/18/21 08:29 Resp 16 02/18/21 08:29 BP 142/78 02/18/21 08:29 Pulse Ox 96 02/18/21 08:29
[2021-02-18] MEDS: FLUTICASONE PROPIONATE NASAL SPRAY 16 GM NS SCH (10:47)
[2021-02-18] MEDS: FAMOTIDINE 20 MG TAB PO SCH (10:48)
[2021-02-18] MEDS: CYANOCOBALAMIN (VIT B-12) 1000 MCG TAB PO SCH (10:48)
[2021-02-18] MEDS: FLUoxetine 20 MG CAP PO SCH (10:48)
[2021-02-18] MEDS: FERROUS SULFATE 325 MG TAB PO SCH (10:48)
[2021-02-18] MEDS: CELECOXIB 200 MG CAP PO SCH (10:50)
[2021-02-18] MEDS: CETIRIZINE 10 MG TAB PO SCH (10:51)
[2021-02-18] MEDS: PANTOPRAZOLE 40 MG TAB PO SCH (10:52)
[2021-02-18] MEDS: GABAPENTIN 300 MG CAP PO SCH ×4 (10:54→21:07)
[2021-02-18] MEDS: traZODone 50 MG TAB PO SCH (21:08)
[2021-02-18] MEDS: MIRTAZAPINE 15 MG TAB PO SCH (21:08)
--- NOTE | 2021-02-19 08:30 | Progress Note ---
Subjective Date of service: 02/19/21 Principal diagnosis: Dementia with Behavior Disturabance Subjective Comment: The patient was seen today, she is sitting at the table talking loudly to herself. She is confused. Her speech is nonsensical. She is irritable and states "I told you yesterday I didn't like this food and that there was a loud racket last night." When asking the patient about SI/HI she says "yea, sometimes I do actually." She verbalizes "hearing voices in her head sometimes." REVIEW OF SYSTEMS Unable to obtain MENTAL STATUS EXAMINATION General Appearance and Behavior: Age appropriate, good hygiene, wearing appropriate clothes, good eye contact, irritable Cooperation: uncooperative Mood: upset Affect and affective range: angry Thought Process: illogical, impaired Thought Content: hallucinations Speech: Normal volume, Regular rate and rhythm, Suicidal Ideation: unclear Homicidal Ideation: Yes Impulse Control: Unimpaired Insight and Judgment: Poor insight and judgment, Memory: Impaired Attention: Divided Orientation: Confused Assessment (1) Dementia with Behavioral Disturbance Current Visit: Yes Status: Acute Treatment Plan Patient admitted for inpatient psychiatric evaluation, medication adjustment and close monitoring The patient's behavior, mood, sleep and appetite will be closely monitored. Patient enrolled in individual and group therapeutic sessions and encouraged to attend. Patient provided with a safe and structured environment. Patient's physical health needs will be addressed by the Hospitalist. Hospitalist Consulted Labs including CBC, CMP, Lipid profile and Hemoglobin A1C levels ordered for baseline reference Social Assessment will be completed and the Lead Cargo Mover will work with patient and family to ensure a suitable and safe disposition Medication adjustment will be made as clinically indicated Increase Olanzapine 7.5mg po daily yesterday Continue Mirtazepin 7.5mg po qhs yesterday No changes made today Usual Wellness [employer]/Preservation: - Start Trazodone 50 mg po QHS & 50 mg po QHS PRN between 10 PM & 2 AM for insomnia - Start Melatonin 5 mg po QHS to promote circadian rhythm - Start [place]-3 for brain health, reduce impulsivity, and as adjunctive treatment for mood disorder, continue upon discharge given overall benefits. - Start B1 prophylaxis with 200 mg po for 5 days The patient agreed on the treatment plan, understood the risk, benefit, alternative treatment, potential consequence of no treatment, and gave informed consent. Initial Certification Estimated days: 3 Post hospital care: primary care provider, psychiatric provider Case staffed with Dr. Rincon Medications and Allergies Allergies Allergy/AdvReac Type Severity Reaction Status Date / Time Penicillins Allergy Rash Verified 02/15/21 12:31 Home Medications Medication Instructions Recorded Confirmed Last Taken Type Acetaminophen/Caff/Dihydrocod 1 each PO Q6HR PRN 02/15/21 02/15/21 Unknown History [[id number] 325] Alendronate Sodium [Fosamax] 70 mg PO QWEEK 02/15/21 02/15/21 Unknown History AtorvaSTATin [Lipitor] 10 mg PO QHS 02/15/21 02/15/21 Unknown History Celecoxib 200 gm PO DAILY 02/15/21 02/15/21 Unknown History Cetirizine HCl [Cetirizine 5mg tab] 10 mg PO DAILY 02/15/21 02/15/21 Unknown History Cyanocobalamin (Vitamin B-12) 1,000 mcg PO DAILY 02/15/21 02/15/21 Unknown History [Vitamin B12] FLUoxetine HCL [PROzac] 40 mg PO QDAY 02/15/21 02/15/21 Unknown History Famotidine [Acid-Pep] 20 mg PO DAILY 02/15/21 02/15/21 Unknown History Ferrous Sulfate [Feosol] 325 mg PO QDAY 02/15/21 02/15/21 Unknown History Fluticasone [Flonase] 1 mcg BN DAILY 02/15/21 02/15/21 Unknown History Gabapentin [Neurontin] 300 mg PO TID 02/15/21 02/15/21 Unknown History Isosorbide Mononitrate [Isosorbide 30 mg PO DAILY 02/15/21 02/15/21 Unknown History Mononitrate ER] LORazepam [Lorazepam] 0.5 mg PO BID PRN 02/15/21 02/15/21 Unknown History oxyCODONE /ACETAMINOPHEN [Percocet 7.5 tab PO Q4HR 02/15/21 02/15/21 Unknown History 5/325] traZODone [Desyrel] 50 mg PO QHS 02/15/21 02/15/21 Unknown History Active Meds: Active Medications Alendronate Sodium (Alendronate Sodium 70 Mg Tab) 70 mg PO Mo JEFFREY Atorvastatin Calcium (Atorvastatin 10 Mg Tab) 10 mg PO QHS [facility] Last Admin: 02/18/21 21:08 Dose: 10 mg Documented by: Celecoxib (Celecoxib 200 Mg Cap) 200 mg PO DAILY [facility] Last Admin: 02/18/21 10:50 Dose: 200 mg Documented by: Cetirizine HCl (Cetirizine 10 Mg Tab) 10 mg PO DAILY [facility] Last Admin: 02/18/21 10:51 Dose: 10 mg Documented by: Cyanocobalamin (Cyanocobalamin (Vit B-12) 1000 Mcg Tab) 1,000 mcg PO DAILY [facility] Last Admin: 02/18/21 10:48 Dose: 1,000 mcg Documented by: Famotidine (Famotidine 20 Mg Tab) 20 mg PO DAILY [facility] Last Admin: 02/18/21 10:48 Dose: 20 mg Documented by: Ferrous Sulfate (Ferrous Sulfate 325 Mg Tab) 325 mg PO QDAY [facility] Last Admin: 02/18/21 10:48 Dose: 325 mg Documented by: Fluoxetine HCl (Fluoxetine 20 Mg Cap) 40 mg PO QDAY [facility] Last Admin: 02/18/21 10:48 Dose: 40 mg Documented by: Fluticasone Propionate (Fluticasone Propionate Nasal [place] 16 Gm) 50 mcg NS DAILY [facility] Last Admin: 02/18/21 10:47 Dose: 50 mcg Documented by: Gabapentin (Gabapentin 300 Mg Cap) 300 mg PO TID [facility] Last Admin: 02/18/21 21:07 Dose: 300 mg Documented by: Isosorbide Mononitrate (Isosorbide Mononitrate Er 30 Mg Tab) 30 mg PO DAILY [facility] Last Admin: 02/18/21 10:48 Dose: 30 mg Documented by: Lorazepam (Lorazepam 0.5 Mg Tab) 0.5 mg PO BID PRN PRN Reason: Agitation Melatonin (Melatonin 5 Mg Tab) 5 mg PO QHS PRN PRN Reason: Sleep Last Admin: 02/15/21 22:18 Dose: 5 mg Documented by: Mirtazapine (Mirtazapine 15 Mg Tab) 7.5 mg PO QHS [facility] Last Admin: 02/18/21 21:08 Dose: 7.5 mg Documented by: Miscellaneous Medication (Acetaminophen/Caff/Dihydrocod [Twfhlhig-Esq-Hraofxsgpmort 325]) 1 each PO Q6HR PRN PRN Reason: Pain, Mild (1-3) Olanzapine (Olanzapine 7.5 Mg Tab) 7.5 mg PO QDAY [facility] Last Admin: 02/18/21 17:01 Dose: Not Given Documented by: Ondansetron HCl (Ondansetron 4 Mg Odt Tab) 4 mg PO Q8H PRN PRN Reason: Nausea And Vomiting Last Admin: 02/17/21 09:08 Dose: 4 mg Documented by: Ondansetron HCl (Ondansetron 8 Mg Odt Tab) 8 mg PO Q8H PRN PRN Reason: Nausea And Vomiting Pantoprazole Sodium (Pantoprazole 40 Mg Tab) 40 mg PO QDAC [facility] Last Admin: 02/18/21 10:52 Dose: 40 mg Documented by: Trazodone HCl (Trazodone 50 Mg Tab) 50 mg PO QHS [facility] Last Admin: 02/18/21 21:08 Dose: 50 mg Documented by: Results - Results Labs/Vitals: Laboratory Last Values WBC 5.6 K/mm3 (4.5-11.0) 02/17/21 09:54 RBC 4.90 M/mm3 (3.65-5.03) 02/17/21 09:54 Hgb 14.3 gm/dl (10.1-14.3) 02/17/21 09:54 Hct 43.1 % (30.3-42.9) H 02/17/21 09:54 MCV 88 fl (79-97) 02/17/21 09:54 MCH 29 pg (28-32) 02/17/21 09:54 MCHC 33 % (30-34) 02/17/21 09:54 RDW 16.3 % (13.2-15.2) H 02/17/21 09:54 Plt Count 228 K/mm3 (140-440) 02/17/21 09:54 Lymph % (Auto) 18.7 % (13.4-35.0) 02/17/21 09:54 [place] % (Auto) 10.1 % (0.0-7.3) H 02/17/21 09:54 Eos % (Auto) 1.0 % (0.0-4.3) 02/17/21 09:54 Baso % (Auto) 0.5 % (0.0-1.8) 02/17/21 09:54 Lymph # (Auto) 1.0 K/mm3 (1.2-5.4) L 02/17/21 09:54 [place] # (Auto) 0.6 K/mm3 (0.0-0.8) 02/17/21 09:54 Eos # (Auto) 0.1 K/mm3 (0.0-0.4) 02/17/21 09:54 Baso # (Auto) 0.0 K/mm3 (0.0-0.1) 02/17/21 09:54 Seg Neutrophils % 69.7 % (40.0-70.0) 02/17/21 09:54 Seg Neutrophils # 3.9 K/mm3 (1.8-7.7) 02/17/21 09:54 Sodium 138 mmol/L (137-145) 02/17/21 09:54 Potassium 4.5 mmol/L (3.6-5.0) 02/17/21 09:54 Chloride 103.9 mmol/L (98-107) 02/17/21 09:54 Carbon Dioxide 25 mmol/L (22-30) 02/17/21 09:54 Anion Gap 14 mmol/L 02/17/21 09:54 BUN 22 mg/dL (7-17) H 02/17/21 09:54 Creatinine 1.1 mg/dL (0.6-1.2) 02/17/21 09:54 Estimated GFR 47 ml/min 02/17/21 09:54 BUN/Creatinine Ratio 20 % 02/17/21 09:54 Glucose 95 mg/dL (65-100) 02/17/21 09:54 POC Glucose 136 mg/dL (70-105) H 02/15/21 16:23 Hemoglobin A1c 5.4 % (4-6) 02/17/21 09:54 Calcium 9.9 mg/dL (8.4-10.2) 02/17/21 09:54 Total Bilirubin 0.50 mg/dL (0.1-1.2) 02/17/21 09:54 AST 89 units/L (5-40) H 02/17/21 09:54 ALT 57 units/L (7-56) H 02/17/21 09:54 Alkaline Phosphatase 105 units/L (35-129) 02/17/21 09:54 Total Protein 7.5 g/dL (6.3-8.2) 02/17/21 09:54 Albumin 3.7 g/dL (3.9-5) L 02/17/21 09:54 Albumin/Globulin Ratio 1.0 % 02/17/21 09:54 Triglycerides 101 mg/dL (2-149) 02/17/21 09:54 Cholesterol 181 mg/dL (50-199) 02/17/21 09:54 LDL Cholesterol Direct 119 mg/dL (50-130) 02/17/21 09:54 HDL Cholesterol 48 mg/dL (40-59) 02/17/21 09:54 Cholesterol/HDL Ratio 3.77 % 02/17/21 09:54 TSH 1.050 mlU/mL (0.270-4.200) 02/17/21 09:54 Last Vital Signs Temp 98.2 F 02/18/21 19:38 Pulse 68 02/18/21 19:38 Resp 20 02/18/21 19:38 BP 150/70 02/18/21 19:38 Pulse Ox 96 02/18/21 19:38
[2021-02-19] MEDS: CELECOXIB 200 MG CAP PO SCH (09:44)
[2021-02-19] MEDS: FLUoxetine 20 MG CAP PO SCH (09:46)
[2021-02-19] MEDS: FERROUS SULFATE 325 MG TAB PO SCH (09:46)
[2021-02-19] MEDS: CYANOCOBALAMIN (VIT B-12) 1000 MCG TAB PO SCH (09:46)
[2021-02-19] MEDS: PANTOPRAZOLE 40 MG TAB PO SCH (09:46)
[2021-02-19] MEDS: FAMOTIDINE 20 MG TAB PO SCH (09:46)
[2021-02-19] MEDS: CETIRIZINE 10 MG TAB PO SCH (09:46)
[2021-02-19] MEDS: FLUTICASONE PROPIONATE NASAL SPRAY 16 GM NS SCH (09:47)
[2021-02-19] MEDS: GABAPENTIN 300 MG CAP PO SCH ×3 (09:47→21:45)
[2021-02-19] MEDS: MIRTAZAPINE 15 MG TAB PO SCH (21:45)
[2021-02-19] MEDS: traZODone 50 MG TAB PO SCH (21:46)
--- NOTE | 2021-02-20 08:10 | Progress Note ---
Subjective Date of service: 02/20/21 Principal diagnosis: Dementia with Behavior Disturabance Subjective Comment: Per Psych Nurse: Pt, very talkative, loose association and repeatedly using the word "stupid" Pt. placed in the quiet room, she continues to talk and use inappropriate. Staff will continue to redirect Psych Progress HPI Patient seen in room, patient very verbal, talking to self and unaware of my presence intially, and then when she saw me, she asked who am I. Pt then is asking herself questions and answering, appears very confused, hyperveral and making random sentences. Reason for continuing inpatient treatment: Pt is demented hence poor historian, extremly confused and paranoid, resistive to care and unable to care for self. WIll need psychiatric and mood stability Review of Symptoms: Constitutional: Negative for weight loss ENT: Negative for stridor Respiratory: Negative for cough or hemoptysis All other systems reviewed and are negative MENTAL STATUS EXAMINATION General Appearance and Behavior: Age appropriate, good hygiene, wearing appropriate clothes, good eye contact, uncooperative, irritable Cooperation: withdrawn Psychomotor Behavior: unremarkable and within normal limits Mood: " no direct response" Affect and affective range: dysthymic Thought Process: illogical, Thought Content: obsessions, delusional Speech: Normal volume, Regular rate and rhythm, Intellectual Functioning: fair Suicidal Ideation: na Homicidal Ideation: na Impulse Control: impaired Insight and Judgment: poor insight and judgment, Memory: imparied Attention: divided Orientation: Alert, but confused and disoriented Treatment Plan Pt started on Depakeene 250 mg TID and Risperidone .5mg BID Patient admitted for inpatient psychiatric evaluation, medication adjustment and close monitoring The patient's behavior, mood, sleep and appetite will be closely monitored. Patient enrolled in individual and group therapeutic sessions and encouraged to attend. Patient provided with a safe and structured environment. Patient's physical health needs will be addressed by the Hospitalist. Hospitalist Consulted Labs including CBC, CMP, Lipid profile and Hemoglobin A1C levels ordered for baseline reference Social Assessment will be completed and the Household Appliance Assembler will work with patient and family to ensure a suitable and safe disposition Medication adjustment will be made as clinically indicated Usual Wellness [employer]/Preservation: - Start Trazodone 50 mg po QHS & 50 mg po QHS PRN between 10 PM & 2 AM for insomnia - Start Melatonin 5 mg po QHS to promote circadian rhythm - Start [place]-3 for brain health, reduce impulsivity, and as adjunctive treatment for mood disorder, continue upon discharge given overall benefits. - Start B1 prophylaxis with 200 mg po for 5 days The patient agreed on the treatment plan, understood the risk, benefit, alternative treatment, potential consequence of no treatment, and gave informed consent. Initial Certification Inpatient psych services: I certify that the inpatient psychiatric services are required for treatment that could reasonably be expected to improve the patient's condition. Estimated days: 7 Post hospital care: primary care provider, psychiatric provider Medications and Allergies Allergies Allergy/AdvReac Type Severity Reaction Status Date / Time Penicillins Allergy Rash Verified 02/15/21 12:31 Home Medications Medication Instructions Recorded Confirmed Last Taken Type Acetaminophen/Caff/Dihydrocod 1 each PO Q6HR PRN 02/15/21 02/15/21 Unknown H istory [Gnwmlqmx-Uqq-Osmxnukogayww 325] Alendronate Sodium [Fosamax] 70 mg PO QWEEK 02/15/21 02/15/21 Unknown History AtorvaSTATin [Lipitor] 10 mg PO QHS 02/15/21 02/15/21 Unknown History Celecoxib 200 gm PO DAILY 02/15/21 02/15/21 Unknown History Cetirizine HCl [Cetirizine 5mg tab] 10 mg PO DAILY 02/15/21 02/15/21 Unknown History Cyanocobalamin (Vitamin B-12) 1,000 mcg PO DAILY 02/15/21 02/15/21 Unknown History [Vitamin B12] FLUoxetine HCL [PROzac] 40 mg PO QDAY 02/15/21 02/15/21 Unknown History Famotidine [Acid-Pep] 20 mg PO DAILY 02/15/21 02/15/21 Unknown History Ferrous Sulfate [Feosol] 325 mg PO QDAY 02/15/21 02/15/21 Unknown History Fluticasone [Flonase] 1 mcg BN DAILY 02/15/21 02/15/21 Unknown History Gabapentin [Neurontin] 300 mg PO TID 02/15/21 02/15/21 Unknown History Isosorbide Mononitrate [Isosorbide 30 mg PO DAILY 02/15/21 02/15/21 Unknown History Mononitrate ER] LORazepam [Lorazepam] 0.5 mg PO BID PRN 02/15/21 02/15/21 Unknown History oxyCODONE /ACETAMINOPHEN [Percocet 7.5 tab PO Q4HR 02/15/21 02/15/21 Unknown History 5/325] traZODone [Desyrel] 50 mg PO QHS 02/15/21 02/15/21 Unknown History Active Meds: Active Medications Alendronate Sodium (Alendronate Sodium 70 Mg Tab) 70 mg PO Mo [facility] Atorvastatin Calcium (Atorvastatin 10 Mg Tab) 10 mg PO QHS [facility] Last Admin: 02/19/21 21:46 Dose: 10 mg Documented by: Celecoxib (Celecoxib 200 Mg Cap) 200 mg PO DAILY [facility] Last Admin: 02/19/21 09:44 Dose: 200 mg Documented by: Cetirizine HCl (Cetirizine 10 Mg Tab) 10 mg PO DAILY [facility] Last Admin: 02/19/21 09:46 Dose: 10 mg Documented by: Cyanocobalamin (Cyanocobalamin (Vit B-12) 1000 Mcg Tab) 1,000 mcg PO DAILY [facility] Last Admin: 02/19/21 09:46 Dose: 1,000 mcg Documented by: Famotidine (Famotidine 20 Mg Tab) 20 mg PO DAILY [facility] Last Admin: 02/19/21 09:46 Dose: 20 mg Documented by: Ferrous Sulfate (Ferrous Sulfate 325 Mg Tab) 325 mg PO QDAY [facility] Last Admin: 02/19/21 09:46 Dose: 325 mg Documented by: Fluoxetine HCl (Fluoxetine 20 Mg Cap) 40 mg PO QDAY [facility] Last Admin: 02/19/21 09:46 Dose: 40 mg Documented by: Fluticasone Propionate (Fluticasone Propionate Nasal [place] 16 Gm) 50 mcg NS DAILY [facility] Last Admin: 02/19/21 09:47 Dose: 50 mcg Documented by: Gabapentin (Gabapentin 300 Mg Cap) 300 mg PO TID [facility] Last Admin: 02/19/21 21:45 Dose: 300 mg Documented by: Isosorbide Mononitrate (Isosorbide Mononitrate Er 30 Mg Tab) 30 mg PO DAILY [facility] Last Admin: 02/19/21 09:48 Dose: 30 mg Documented by: Lorazepam (Lorazepam 0.5 Mg Tab) 0.5 mg PO BID PRN PRN Reason: Agitation Melatonin (Melatonin 5 Mg Tab) 5 mg PO QHS PRN PRN Reason: Sleep Last Admin: 02/15/21 22:18 Dose: 5 mg Documented by: Mirtazapine (Mirtazapine 15 Mg Tab) 7.5 mg PO QHS [facility] Last Admin: 02/19/21 21:45 Dose: 7.5 mg Documented by: Miscellaneous Medication (Acetaminophen/Caff/Dihydrocod [Ixyilqtt-Cnv-Ixxcuhnagrffe 325]) 1 each PO Q6HR PRN PRN Reason: Pain, Mild (1-3) Olanzapine (Olanzapine 7.5 Mg Tab) 7.5 mg PO QDAY [facility] Last Admin: 02/19/21 09:46 Dose: 7.5 mg Documented by: Ondansetron HCl (Ondansetron 4 Mg Odt Tab) 4 mg PO Q8H PRN PRN Reason: Nausea And Vomiting Last Admin: 02/17/21 09:08 Dose: 4 mg Documented by: Ondansetron HCl (Ondansetron 8 Mg Odt Tab) 8 mg PO Q8H PRN PRN Reason: Nausea And Vomiting Pantoprazole Sodium (Pantoprazole 40 Mg Tab) 40 mg PO QDAC [facility] Last Admin: 02/19/21 09:46 Dose: 40 mg Documented by: Trazodone HCl (Trazodone 50 Mg Tab) 50 mg PO QHS [facility] Last Admin: 02/19/21 21:46 Dose: 50 mg Documented by: Results - Results Labs/Vitals: Laboratory Last Values WBC 5.6 K/mm3 (4.5-11.0) 02/17/21 09:54 RBC 4.90 M/mm3 (3.65-5.03) 02/17/21 09:54 Hgb 14.3 gm/dl (10.1-14.3) 02/17/21 09:54 Hct 43.1 % (30.3-42.9) H 02/17/21 09:54 MCV 88 fl (79-97) 02/17/21 09:54 MCH 29 pg (28-32) 02/17/21 09:54 MCHC 33 % (30-34) 02/17/21 09:54 RDW 16.3 % (13.2-15.2) H 02/17/21 09:54 Plt Count 228 K/mm3 (140-440) 02/17/21 09:54 Lymph % (Auto) 18.7 % (13.4-35.0) 02/17/21 09:54 [place] % (Auto) 10.1 % (0.0-7.3) H 02/17/21 09:54 Eos % (Auto) 1.0 % (0.0-4.3) 02/17/21 09:54 Baso % (Auto) 0.5 % (0.0-1.8) 02/17/21 09:54 Lymph # (Auto) 1.0 K/mm3 (1.2-5.4) L 02/17/21 09:54 [place] # (Auto) 0.6 K/mm3 (0.0-0.8) 02/17/21 09:54 Eos # (Auto) 0.1 K/mm3 (0.0-0.4) 02/17/21 09:54 Baso # (Auto) 0.0 K/mm3 (0.0-0.1) 02/17/21 09:54 Seg Neutrophils % 69.7 % (40.0-70.0) 02/17/21 09:54 Seg Neutrophils # 3.9 K/mm3 (1.8-7.7) 02/17/21 09:54 Sodium 138 mmol/L (137-145) 02/17/21 09:54 Potassium 4.5 mmol/L (3.6-5.0) 02/17/21 09:54 Chloride 103.9 mmol/L (98-107) 02/17/21 09:54 Carbon Dioxide 25 mmol/L (22-30) 02/17/21 09:54 Anion Gap 14 mmol/L 02/17/21 09:54 BUN 22 mg/dL (7-17) H 02/17/21 09:54 Creatinine 1.1 mg/dL (0.6-1.2) 02/17/21 09:54 Estimated GFR 47 ml/min 02/17/21 09:54 BUN/Creatinine Ratio 20 % 02/17/21 09:54 Glucose 95 mg/dL (65-100) 02/17/21 09:54 POC Glucose 136 mg/dL (70-105) H 02/15/21 16:23 Hemoglobin A1c 5.4 % (4-6) 02/17/21 09:54 Calcium 9.9 mg/dL (8.4-10.2) 02/17/21 09:54 Total Bilirubin 0.50 mg/dL (0.1-1.2) 02/17/21 09:54 AST 89 units/L (5-40) H 02/17/21 09:54 ALT 57 units/L (7-56) H 02/17/21 09:54 Alkaline Phosphatase 105 units/L (35-129) 02/17/21 09:54 Total Protein 7.5 g/dL (6.3-8.2) 02/17/21 09:54 Albumin 3.7 g/dL (3.9-5) L 02/17/21 09:54 Albumin/Globulin Ratio 1.0 % 02/17/21 09:54 Triglycerides 101 mg/dL (2-149) 02/17/21 09:54 Cholesterol 181 mg/dL (50-199) 02/17/21 09:54 LDL Cholesterol Direct 119 mg/dL (50-130) 02/17/21 09:54 HDL Cholesterol 48 mg/dL (40-59) 02/17/21 09:54 Cholesterol/HDL Ratio 3.77 % 02/17/21 09:54 TSH 1.050 mlU/mL (0.270-4.200) 02/17/21 09:54 Last Vital Signs Temp 97.6 F 02/19/21 19:23 Pulse 58 L 02/19/21 19:23 Resp 18 02/19/21 19:23 BP 161/68 02/19/21 19:23 Pulse Ox 96 02/19/21 19:23
[2021-02-20] MEDS: CELECOXIB 200 MG CAP PO SCH (13:03)
[2021-02-20] MEDS: GABAPENTIN 300 MG CAP PO SCH ×3 (13:03→21:44)
[2021-02-20] MEDS: PANTOPRAZOLE 40 MG TAB PO SCH (13:03)
[2021-02-20] MEDS: FLUTICASONE PROPIONATE NASAL SPRAY 16 GM NS SCH (13:04)
[2021-02-20] MEDS: FERROUS SULFATE 325 MG TAB PO SCH (13:04)
[2021-02-20] MEDS: CETIRIZINE 10 MG TAB PO SCH (13:04)
[2021-02-20] MEDS: risperiDONE 0.25 MG TAB PO SCH ×2 (13:05→21:45)
[2021-02-20] MEDS: FAMOTIDINE 20 MG TAB PO SCH (13:06)
[2021-02-20] MEDS: CYANOCOBALAMIN (VIT B-12) 1000 MCG TAB PO SCH (13:06)
--- NOTE | 2021-02-20 14:18 | Progress Note ---
Assessment and Plan - Patient Problems (1) Vascular dementia with behavior disturbance Current Visit: Yes Status: Acute Plan to address problem: Verbal prompting, verbal redirection, benzodiazepine therapy as clinically indicated. (2) Cerebral atherosclerosis Current Visit: Yes Status: Acute Plan to address problem: Risk factor reduction, antiplatelet therapy as clinically indicated, supportive care. (3) Hypertension Current Visit: Yes Status: Acute Qualifiers: Hypertension type: essential hypertension Qualified Code(s): I10 - Essential (primary) hypertension Plan to address problem: Monitor blood pressure every shift, continue medical management. (4) CAD (coronary artery disease) Current Visit: Yes Status: Acute Plan to address problem: Antiplatelet therapy as clinically indicated, risk factor reduction, supportive care. (5) Osteoporosis Current Visit: Yes Status: Acute Plan to address problem: Continue alendronate, supportive care. History Interval history: 85 YO Female with Vascular Dementia with Behavioral Disturbance, Cerebral Atherosclerosis, Anemia, CAD, Osteoperosis admitted to [facility] for Psychiatric stabilization. Patient resting comfortably while sitting in the dayroom. No reported nursing events. Patient denies pain. Hospitalist Physical - Constitutional Vitals: Temp Pulse Resp BP Pulse Ox 97.5 F L 78 22 147/48 99 02/20/21 09:46 02/20/21 13:07 02/20/21 09:46 02/20/21 13:07 02/20/21 09:46 General appearance: Present: no acute distress, well-nourished - EENT Eyes: Present: PERRL ENT: hearing intact - Neck Neck: Present: supple - Respiratory Respiratory effort: normal Respiratory: bilateral: CTA - Cardiovascular Rhythm: regular Heart Sounds: Present: S1 & S2 - Extremities Extremities: no ischemia Peripheral Pulses: within normal limits - Abdominal General gastrointestinal: soft, non-tender, non-distended - Integumentary Integumentary: Present: clear, dry - Psychiatric Psychiatric: cooperative - Neurologic Neurologic: CNII-XII intact Results - Labs CBC & Chem 7: 02/17/21 09:54 02/17/21 09:54 Labs: Laboratory Last Values WBC 5.6 K/mm3 (4.5-11.0) 02/17/21 09:54 RBC 4.90 M/mm3 (3.65-5.03) 02/17/21 09:54 Hgb 14.3 gm/dl (10.1-14.3) 02/17/21 09:54 Hct 43.1 % (30.3-42.9) H 02/17/21 09:54 MCV 88 fl (79-97) 02/17/21 09:54 MCH 29 pg (28-32) 02/17/21 09:54 MCHC 33 % (30-34) 02/17/21 09:54 RDW 16.3 % (13.2-15.2) H 02/17/21 09:54 Plt Count 228 K/mm3 (140-440) 02/17/21 09:54 Lymph % (Auto) 18.7 % (13.4-35.0) 02/17/21 09:54 [place] % (Auto) 10.1 % (0.0-7.3) H 02/17/21 09:54 Eos % (Auto) 1.0 % (0.0-4.3) 02/17/21 09:54 Baso % (Auto) 0.5 % (0.0-1.8) 02/17/21 09:54 Lymph # (Auto) 1.0 K/mm3 (1.2-5.4) L 02/17/21 09:54 [place] # (Auto) 0.6 K/mm3 (0.0-0.8) 02/17/21 09:54 Eos # (Auto) 0.1 K/mm3 (0.0-0.4) 02/17/21 09:54 Baso # (Auto) 0.0 K/mm3 (0.0-0.1) 02/17/21 09:54 Seg Neutrophils % 69.7 % (40.0-70.0) 02/17/21 09:54 Seg Neutrophils # 3.9 K/mm3 (1.8-7.7) 02/17/21 09:54 Sodium 138 mmol/L (137-145) 02/17/21 09:54 Potassium 4.5 mmol/L (3.6-5.0) 02/17/21 09:54 Chloride 103.9 mmol/L (98-107) 02/17/21 09:54 Carbon Dioxide 25 mmol/L (22-30) 02/17/21 09:54 Anion Gap 14 mmol/L 02/17/21 09:54 BUN 22 mg/dL (7-17) H 02/17/21 09:54 Creatinine 1.1 mg/dL (0.6-1.2) 02/17/21 09:54 Estimated GFR 47 ml/min 02/17/21 09:54 BUN/Creatinine Ratio 20 % 02/17/21 09:54 Glucose 95 mg/dL (65-100) 02/17/21 09:54 POC Glucose 136 mg/dL (70-105) H 02/15/21 16:23 Hemoglobin A1c 5.4 % (4-6) 02/17/21 09:54 Calcium 9.9 mg/dL (8.4-10.2) 02/17/21 09:54 Total Bilirubin 0.50 mg/dL (0.1-1.2) 02/17/21 09:54 AST 89 units/L (5-40) H 02/17/21 09:54 ALT 57 units/L (7-56) H 02/17/21 09:54 Alkaline Phosphatase 105 units/L (35-129) 02/17/21 09:54 Total Protein 7.5 g/dL (6.3-8.2) 02/17/21 09:54 Albumin 3.7 g/dL (3.9-5) L 02/17/21 09:54 Albumin/Globulin Ratio 1.0 % 02/17/21 09:54 Triglycerides 101 mg/dL (2-149) 02/17/21 09:54 Cholesterol 181 mg/dL (50-199) 02/17/21 09:54 LDL Cholesterol Direct 119 mg/dL (50-130) 02/17/21 09:54 HDL Cholesterol 48 mg/dL (40-59) 02/17/21 09:54 Cholesterol/HDL Ratio 3.77 % 02/17/21 09:54 TSH 1.050 mlU/mL (0.270-4.200) 02/17/21 09:54 Shankar/IV: Voiding Method Toilet Active Medications - Current Medications Current Medications: Generic Name Dose Route Start Last Admin Trade Name Freq PRN Reason Stop Dose Admin Alendronate Sodium 70 mg 02/23/21 06:30 Alendronate Sodium 70 Mg Tab PO Mo JEFFREY Atorvastatin Calcium 10 mg 02/16/21 22:00 02/19/21 21:46 Atorvastatin 10 Mg Tab PO 10 mg QHS JEFFREY Administration Celecoxib 200 mg 02/17/21 10:00 02/20/21 13:03 Celecoxib 200 Mg Cap PO 200 mg DAILY JEFFREY Administration Cetirizine HCl 10 mg 02/16/21 11:00 02/20/21 13:04 Cetirizine 10 Mg Tab PO 10 mg DAILY JEFFREY Administration Cyanocobalamin 1,000 mcg 02/17/21 10:00 02/20/21 13:06 Cyanocobalamin (Vit B-12) 1000 Mcg Tab PO 1,000 mcg DAILY JEFFREY Administration Famotidine 20 mg 02/16/21 11:00 02/20/21 13:06 Famotidine 20 Mg Tab PO 20 mg DAILY JEFFREY Administration Ferrous Sulfate 325 mg 02/16/21 11:00 02/20/21 13:04 Ferrous Sulfate 325 Mg Tab PO 325 mg QDAY JEFFREY Administration Fluticasone Propionate 50 mcg 02/17/21 10:00 02/20/21 13:04 Fluticasone Propionate Nasal [place] 16 Gm NS 50 mcg DAILY JEFFREY Administration Gabapentin 300 mg 02/16/21 14:00 02/20/21 13:03 Gabapentin 300 Mg Cap PO 300 mg TID JEFFREY Administration Isosorbide Mononitrate 30 mg 02/16/21 11:00 02/20/21 13:07 Isosorbide Mononitrate Er 30 Mg Tab PO 30 mg DAILY JEFFREY Administration Lorazepam 0.5 mg 02/16/21 10:53 Lorazepam 0.5 Mg Tab PO BID PRN Agitation Melatonin 5 mg 02/15/21 11:43 02/15/21 22:18 Melatonin 5 Mg Tab PO 5 mg QHS PRN Administration Sleep Mirtazapine 7.5 mg 02/17/21 22:00 02/19/21 21:45 Mirtazapine 15 Mg Tab PO 7.5 mg QHS JEFFREY Administration Miscellaneous Medication 1 each 02/16/21 10:53 Acetaminophen/Caff/Dihydrocod [Eutjfqlg-Bwm-Qgfelsozbkpej 325] PO Q6HR PRN Pain, Mild (1-3) Ondansetron HCl 4 mg 02/16/21 11:53 02/17/21 09:08 Ondansetron 4 Mg Odt Tab PO 4 mg Q8H PRN Administration Nausea And Vomiting Ondansetron HCl 8 mg 02/16/21 12:28 Ondansetron 8 Mg Odt Tab PO Q8H PRN Nausea And Vomiting Pantoprazole Sodium 40 mg 02/17/21 07:30 02/20/21 13:03 Pantoprazole 40 Mg Tab PO 40 mg QDAC JEFFREY Administration Risperidone 0.5 mg 02/20/21 10:00 02/20/21 13:05 Risperidone 0.25 Mg Tab PO 0.5 mg BID JEFFREY Administration Valproic Acid 250 mg 02/20/21 14:00 Valproic Acid 250 Mg/5 Ml Oral Liqd PO TID JEFFREY
--- NOTE | 2021-02-20 14:20 | Progress Note ---
Assessment and Plan - Patient Problems (1) Vascular dementia with behavior disturbance Current Visit: Yes Status: Acute Plan to address problem: Verbal prompting, verbal redirection, benzodiazepine therapy as clinically indicated. (2) Cerebral atherosclerosis Current Visit: Yes Status: Acute Plan to address problem: Risk factor reduction, antiplatelet therapy as clinically indicated, supportive care. (3) Hypertension Current Visit: Yes Status: Acute Qualifiers: Hypertension type: essential hypertension Qualified Code(s): I10 - Essential (primary) hypertension Plan to address problem: Monitor blood pressure every shift, continue medical management. (4) CAD (coronary artery disease) Current Visit: Yes Status: Acute Plan to address problem: Antiplatelet therapy as clinically indicated, risk factor reduction, supportive care. (5) Osteoporosis Current Visit: Yes Status: Acute Plan to address problem: Continue alendronate, supportive care. History Interval history: 85 YO Female with Vascular Dementia with Behavioral Disturbance, Cerebral Atherosclerosis, Anemia, CAD, Osteoperosis admitted to [facility] for Psychiatric stabilization. Patient resting comfortably while sitting in the dayroom. No reported nursing events. Patient denies pain. Patient cooperative with therapy. Hospitalist Physical - Constitutional Vitals: Temp Pulse Resp BP Pulse Ox 97.5 F L 78 22 147/48 99 02/20/21 09:46 02/20/21 13:07 02/20/21 09:46 02/20/21 13:07 02/20/21 09:46 General appearance: Present: no acute distress, well-nourished - EENT Eyes: Present: PERRL, EOM intact ENT: hearing decreased - Neck Neck: Present: supple - Respiratory Respiratory effort: normal Respiratory: bilateral: CTA - Cardiovascular Rhythm: regular Heart Sounds: Present: S1 & S2 - Extremities Extremities: no ischemia Peripheral Pulses: within normal limits - Abdominal General gastrointestinal: soft, non-tender, non-distended - Integumentary Integumentary: Present: clear, dry - Psychiatric Psychiatric: appropriate mood/affect, cooperative - Neurologic Neurologic: CNII-XII intact Results - Labs CBC & Chem 7: 02/17/21 09:54 02/17/21 09:54 Labs: Laboratory Last Values WBC 5.6 K/mm3 (4.5-11.0) 02/17/21 09:54 RBC 4.90 M/mm3 (3.65-5.03) 02/17/21 09:54 Hgb 14.3 gm/dl (10.1-14.3) 02/17/21 09:54 Hct 43.1 % (30.3-42.9) H 02/17/21 09:54 MCV 88 fl (79-97) 02/17/21 09:54 MCH 29 pg (28-32) 02/17/21 09:54 MCHC 33 % (30-34) 02/17/21 09:54 RDW 16.3 % (13.2-15.2) H 02/17/21 09:54 Plt Count 228 K/mm3 (140-440) 02/17/21 09:54 Lymph % (Auto) 18.7 % (13.4-35.0) 02/17/21 09:54 [place] % (Auto) 10.1 % (0.0-7.3) H 02/17/21 09:54 Eos % (Auto) 1.0 % (0.0-4.3) 02/17/21 09:54 Baso % (Auto) 0.5 % (0.0-1.8) 02/17/21 09:54 Lymph # (Auto) 1.0 K/mm3 (1.2-5.4) L 02/17/21 09:54 [place] # (Auto) 0.6 K/mm3 (0.0-0.8) 02/17/21 09:54 Eos # (Auto) 0.1 K/mm3 (0.0-0.4) 02/17/21 09:54 Baso # (Auto) 0.0 K/mm3 (0.0-0.1) 02/17/21 09:54 Seg Neutrophils % 69.7 % (40.0-70.0) 02/17/21 09:54 Seg Neutrophils # 3.9 K/mm3 (1.8-7.7) 02/17/21 09:54 Sodium 138 mmol/L (137-145) 02/17/21 09:54 Potassium 4.5 mmol/L (3.6-5.0) 02/17/21 09:54 Chloride 103.9 mmol/L (98-107) 02/17/21 09:54 Carbon Dioxide 25 mmol/L (22-30) 02/17/21 09:54 Anion Gap 14 mmol/L 02/17/21 09:54 BUN 22 mg/dL (7-17) H 02/17/21 09:54 Creatinine 1.1 mg/dL (0.6-1.2) 02/17/21 09:54 Estimated GFR 47 ml/min 02/17/21 09:54 BUN/Creatinine Ratio 20 % 02/17/21 09:54 Glucose 95 mg/dL (65-100) 02/17/21 09:54 POC Glucose 136 mg/dL (70-105) H 02/15/21 16:23 Hemoglobin A1c 5.4 % (4-6) 02/17/21 09:54 Calcium 9.9 mg/dL (8.4-10.2) 02/17/21 09:54 Total Bilirubin 0.50 mg/dL (0.1-1.2) 02/17/21 09:54 AST 89 units/L (5-40) H 02/17/21 09:54 ALT 57 units/L (7-56) H 02/17/21 09:54 Alkaline Phosphatase 105 units/L (35-129) 02/17/21 09:54 Total Protein 7.5 g/dL (6.3-8.2) 02/17/21 09:54 Albumin 3.7 g/dL (3.9-5) L 02/17/21 09:54 Albumin/Globulin Ratio 1.0 % 02/17/21 09:54 Triglycerides 101 mg/dL (2-149) 02/17/21 09:54 Cholesterol 181 mg/dL (50-199) 02/17/21 09:54 LDL Cholesterol Direct 119 mg/dL (50-130) 02/17/21 09:54 HDL Cholesterol 48 mg/dL (40-59) 02/17/21 09:54 Cholesterol/HDL Ratio 3.77 % 02/17/21 09:54 TSH 1.050 mlU/mL (0.270-4.200) 02/17/21 09:54 Shankar/IV: Voiding Method Toilet Active Medications - Current Medications Current Medications: Generic Name Dose Route Start Last Admin Trade Name Freq PRN Reason Stop Dose Admin Alendronate Sodium 70 mg 02/23/21 06:30 Alendronate Sodium 70 Mg Tab PO Mo [facility] Atorvastatin Calcium 10 mg 02/16/21 22:00 02/19/21 21:46 Atorvastatin 10 Mg Tab PO 10 mg QHS JEFFREY Administration Celecoxib 200 mg 02/17/21 10:00 02/20/21 13:03 Celecoxib 200 Mg Cap PO 200 mg DAILY JEFFREY Administration Cetirizine HCl 10 mg 02/16/21 11:00 02/20/21 13:04 Cetirizine 10 Mg Tab PO 10 mg DAILY JEFFREY Administration Cyanocobalamin 1,000 mcg 02/17/21 10:00 02/20/21 13:06 Cyanocobalamin (Vit B-12) 1000 Mcg Tab PO 1,000 mcg DAILY JEFFREY Administration Famotidine 20 mg 02/16/21 11:00 02/20/21 13:06 Famotidine 20 Mg Tab PO 20 mg DAILY JEFFREY Administration Ferrous Sulfate 325 mg 02/16/21 11:00 02/20/21 13:04 Ferrous Sulfate 325 Mg Tab PO 325 mg QDAY JEFFREY Administration Fluticasone Propionate 50 mcg 02/17/21 10:00 02/20/21 13:04 Fluticasone Propionate Nasal [place] 16 Gm NS 50 mcg DAILY JEFFREY Administration Gabapentin 300 mg 02/16/21 14:00 02/20/21 13:03 Gabapentin 300 Mg Cap PO 300 mg TID JEFFREY Administration Isosorbide Mononitrate 30 mg 02/16/21 11:00 02/20/21 13:07 Isosorbide Mononitrate Er 30 Mg Tab PO 30 mg DAILY JEFFREY Administration Lorazepam 0.5 mg 02/16/21 10:53 Lorazepam 0.5 Mg Tab PO BID PRN Agitation Melatonin 5 mg 02/15/21 11:43 02/15/21 22:18 Melatonin 5 Mg Tab PO 5 mg QHS PRN Administration Sleep Mirtazapine 7.5 mg 02/17/21 22:00 02/19/21 21:45 Mirtazapine 15 Mg Tab PO 7.5 mg QHS JEFFREY Administration Miscellaneous Medication 1 each 02/16/21 10:53 Acetaminophen/Caff/Dihydrocod [Kboujsso-Paq-Lzvkvgvbbvwdr 325] PO Q6HR PRN Pain, Mild (1-3) Ondansetron HCl 4 mg 02/16/21 11:53 02/17/21 09:08 Ondansetron 4 Mg Odt Tab PO 4 mg Q8H PRN Administration Nausea And Vomiting Ondansetron HCl 8 mg 02/16/21 12:28 Ondansetron 8 Mg Odt Tab PO Q8H PRN Nausea And Vomiting Pantoprazole Sodium 40 mg 02/17/21 07:30 02/20/21 13:03 Pantoprazole 40 Mg Tab PO 40 mg QDAC JEFFREY Administration Risperidone 0.5 mg 02/20/21 10:00 02/20/21 13:05 Risperidone 0.25 Mg Tab PO 0.5 mg BID JEFFREY Administration Valproic Acid 250 mg 02/20/21 14:00 Valproic Acid 250 Mg/5 Ml Oral Liqd PO TID JEFFREY
[2021-02-20] MEDS: VALPROIC ACID 250 MG/5 ML ORAL LIQD PO SCH ×2 (17:57→21:44)
[2021-02-20] MEDS: MIRTAZAPINE 15 MG TAB PO SCH (21:44)
[2021-02-21] MEDS: risperiDONE 0.25 MG TAB PO SCH (09:25)
[2021-02-21] MEDS: FAMOTIDINE 20 MG TAB PO SCH (09:25)
[2021-02-21] MEDS: FLUTICASONE PROPIONATE NASAL SPRAY 16 GM NS SCH (09:25)
[2021-02-21] MEDS: CYANOCOBALAMIN (VIT B-12) 1000 MCG TAB PO SCH (09:25)
[2021-02-21] MEDS: VALPROIC ACID 250 MG/5 ML ORAL LIQD PO SCH ×3 (09:25→21:52)
[2021-02-21] MEDS: CETIRIZINE 10 MG TAB PO SCH (09:25)
[2021-02-21] MEDS: GABAPENTIN 300 MG CAP PO SCH ×3 (09:26→21:54)
[2021-02-21] MEDS: PANTOPRAZOLE 40 MG TAB PO SCH (09:26)
[2021-02-21] MEDS: CELECOXIB 200 MG CAP PO SCH (09:26)
[2021-02-21] MEDS: FERROUS SULFATE 325 MG TAB PO SCH (09:26)
[2021-02-21] MEDS: risperiDONE 1 MG TAB PO SCH ×2 (11:35→21:54)
--- NOTE | 2021-02-21 14:50 | Progress Note ---
Subjective Date of service: 02/21/21 Principal diagnosis: Dementia with Behavior Disturabance Subjective Comment: Per Psych Nurse: Received patient at 1900 on 02/20. Patient was in the activity room sitting with peers but talking to herself. Last evening the patient had to be from her peers due to her causing increased agitation by her constant talking. Even when alone she is not silent. Her appetite was fair and she was medication compliant. Overnight the patient rested quietly and presents as sleeping 8 hours. Will continue to monitor patient for safety. Psych Progress HPI Patient seen in room this a.m. she presented as hyperverbal, seems to be having a conversation with self in a third person manner. When I approached the patient, patient asked who I am, I introduced myself to patient but patient began to talk about students, then she sees my wedding ring and says oh he is , then a few seconds later she asked again "WHO I AM. Reason for continuing inpatient treatment: Pt is demented hence poor historian, extremly confused and paranoid, resistive to care and unable to care for self. WIll need psychiatric and mood stability. Review of Symptoms: Constitutional: Negative for weight loss ENT: Negative for stridor Respiratory: Negative for cough or hemoptysis All other systems reviewed and are negative MENTAL STATUS EXAMINATION General Appearance and Behavior: Age appropriate, good hygiene, wearing appropriate clothes, good eye contact, uncooperative, irritable Cooperation: withdrawn Psychomotor Behavior: unremarkable and within normal limits Mood: " no direct response" Affect and affective range: dysthymic Thought Process: illogical, Thought Content: obsessions, delusional Speech: Normal volume, Regular rate and rhythm, Intellectual Functioning: fair Suicidal Ideation: na Homicidal Ideation: na Impulse Control: impaired Insight and Judgment: poor insight and judgment, Memory: imparied Attention: divided Orientation: Alert, but confused and disoriented Treatment Plan Pt started on Depakeene 250 mg TID and Risperidone 1mg BID Patient admitted for inpatient psychiatric evaluation, medication adjustment and close monitoring The patient's behavior, mood, sleep and appetite will be closely monitored. Patient enrolled in individual and group therapeutic sessions and encouraged to attend. Patient provided with a safe and structured environment. Patient's physical health needs will be addressed by the Hospitalist. Hospitalist Consulted Labs including CBC, CMP, Lipid profile and Hemoglobin A1C levels ordered for baseline reference Social Assessment will be completed and the Finishing Department Supervisor will work with patient and family to ensure a suitable and safe disposition Medication adjustment will be made as clinically indicated Usual Wellness Taoism/Preservation: - Start Trazodone 50 mg po QHS & 50 mg po QHS PRN between 10 PM & 2 AM for insomnia - Start Melatonin 5 mg po QHS to promote circadian rhythm - Start [place]-3 for brain health, reduce impulsivity, and as adjunctive treatment for mood disorder, continue upon discharge given overall benefits. - Start B1 prophylaxis with 200 mg po for 5 days The patient agreed on the treatment plan, understood the risk, benefit, alternative treatment, potential consequence of no treatment, and gave informed consent. Initial Certification Inpatient psych services: I certify that the inpatient psychiatric services are required for treatment that could reasonably be expected to improve the patient's condition. Estimated days:5 Post hospital care: primary care provider, psychiatric provider Medications and Allergies Allergies Allergy/AdvReac Type Severity Reaction Status Date / Time Penicillins Allergy Rash Verified 02/15/21 12:31 Home Medications Medication Instructions Recorded Confirmed Last Taken Type Acetaminophen/Caff/Dihydrocod 1 each PO Q6HR PRN 02/15/21 02/15/21 Unknown History [Lceaxpvm-Dad-Ccgiuzdgojmmn 325] Alendronate Sodium [Fosamax] 70 mg PO QWEEK 02/15/21 02/15/21 Unknown History AtorvaSTATin [Lipitor] 10 mg PO QHS 02/15/21 02/15/21 Unknown History Celecoxib 200 gm PO DAILY 02/15/21 02/15/21 Unknown History Cetirizine HCl [Cetirizine 5mg tab] 10 mg PO DAILY 02/15/21 02/15/21 Unknown Hi story Cyanocobalamin (Vitamin B-12) 1,000 mcg PO DAILY 02/15/21 02/15/21 Unknown History [Vitamin B12] FLUoxetine HCL [PROzac] 40 mg PO QDAY 02/15/21 02/15/21 Unknown History Famotidine [Acid-Pep] 20 mg PO DAILY 02/15/21 02/15/21 Unknown History Ferrous Sulfate [Feosol] 325 mg PO QDAY 02/15/21 02/15/21 Unknown History Fluticasone [Flonase] 1 mcg BN DAILY 02/15/21 02/15/21 Unknown History Gabapentin [Neurontin] 300 mg PO TID 02/15/21 02/15/21 Unknown History Isosorbide Mononitrate [Isosorbide 30 mg PO DAILY 02/15/21 02/15/21 Unknown History Mononitrate ER] LORazepam [Lorazepam] 0.5 mg PO BID PRN 02/15/21 02/15/21 Unknown History oxyCODONE /ACETAMINOPHEN [Percocet 7.5 tab PO Q4HR 02/15/21 02/15/21 Unknown History 5/325] traZODone [Desyrel] 50 mg PO QHS 02/15/21 02/15/21 Unknown History Active Meds: Active Medications Alendronate Sodium (Alendronate Sodium 70 Mg Tab) 70 mg PO Mo [facility] Atorvastatin Calcium (Atorvastatin 10 Mg Tab) 10 mg PO QHS [facility] Last Admin: 02/20/21 21:44 Dose: 10 mg Documented by: Celecoxib (Celecoxib 200 Mg Cap) 200 mg PO DAILY [facility] Last Admin: 02/21/21 09:26 Dose: 200 mg Documented by: Cetirizine HCl (Cetirizine 10 Mg Tab) 10 mg PO DAILY [facility] Last Admin: 02/21/21 09:25 Dose: 10 mg Documented by: Cyanocobalamin (Cyanocobalamin (Vit B-12) 1000 Mcg Tab) 1,000 mcg PO DAILY [facility] Last Admin: 02/21/21 09:25 Dose: 1,000 mcg Documented by: Famotidine (Famotidine 20 Mg Tab) 20 mg PO DAILY [facility] Last Admin: 02/21/21 09:25 Dose: 20 mg Documented by: Ferrous Sulfate (Ferrous Sulfate 325 Mg Tab) 325 mg PO QDAY [facility] Last Admin: 02/21/21 09:26 Dose: 325 mg Documented by: Fluticasone Propionate (Fluticasone Propionate Nasal [place] 16 Gm) 50 mcg NS DAILY [facility] Last Admin: 02/21/21 09:25 Dose: 50 mcg Documented by: Gabapentin (Gabapentin 300 Mg Cap) 300 mg PO TID [facility] Last Admin: 02/21/21 09:26 Dose: 300 mg Documented by: Isosorbide Mononitrate (Isosorbide Mononitrate Er 30 Mg Tab) 30 mg PO DAILY [facility] Last Admin: 02/21/21 09:31 Dose: 30 mg Documented by: Lorazepam (Lorazepam 0.5 Mg Tab) 0.5 mg PO BID PRN PRN Reason: Agitation Melatonin (Melatonin 5 Mg Tab) 5 mg PO QHS PRN PRN Reason: Sleep Last Admin: 02/15/21 22:18 Dose: 5 mg Documented by: Mirtazapine (Mirtazapine 15 Mg Tab) 7.5 mg PO QHS [facility] Last Admin: 02/20/21 21:44 Dose: 7.5 mg Documented by: Miscellaneous Medication (Acetaminophen/Caff/Dihydrocod [Ifrmroen-Tdc-Crmxjkouflsef 325]) 1 each PO Q6HR PRN PRN Reason: Pain, Mild (1-3) Ondansetron HCl (Ondansetron 4 Mg Odt Tab) 4 mg PO Q8H PRN PRN Reason: Nausea And Vomiting Last Admin: 02/17/21 09:08 Dose: 4 mg Documented by: Ondansetron HCl (Ondansetron 8 Mg Odt Tab) 8 mg PO Q8H PRN PRN Reason: Nausea And Vomiting Pantoprazole Sodium (Pantoprazole 40 Mg Tab) 40 mg PO QDAC [facility] Last Admin: 02/21/21 09:26 Dose: 40 mg Documented by: Risperidone (Risperidone 0.25 Mg Tab) 1 mg PO BID [facility] Valproic Acid (Valproic Acid 250 Mg/5 Ml Oral Liqd) 250 mg PO TID [facility] Last Admin: 02/21/21 09:25 Dose: 250 mg Documented by: Results - Results Labs/Vitals: Laboratory Last Values WBC 5.6 K/mm3 (4.5-11.0) 02/17/21 09:54 RBC 4.90 M/mm3 (3.65-5.03) 02/17/21 09:54 Hgb 14.3 gm/dl (10.1-14.3) 02/17/21 09:54 Hct 43.1 % (30.3-42.9) H 02/17/21 09:54 MCV 88 fl (79-97) 02/17/21 09:54 MCH 29 pg (28-32) 02/17/21 09:54 MCHC 33 % (30-34) 02/17/21 09:54 RDW 16.3 % (13.2-15.2) H 02/17/21 09:54 Plt Count 228 K/mm3 (140-440) 02/17/21 09:54 Lymph % (Auto) 18.7 % (13.4-35.0) 02/17/21 09:54 [place] % (Auto) 10.1 % (0.0-7.3) H 02/17/21 09:54 Eos % (Auto) 1.0 % (0.0-4.3) 02/17/21 09:54 Baso % (Auto) 0.5 % (0.0-1.8) 02/17/21 09:54 Lymph # (Auto) 1.0 K/mm3 (1.2-5.4) L 02/17/21 09:54 [place] # (Auto) 0.6 K/mm3 (0.0-0.8) 02/17/21 09:54 Eos # (Auto) 0.1 K/mm3 (0.0-0.4) 02/17/21 09:54 Baso # (Auto) 0.0 K/mm3 (0.0-0.1) 02/17/21 09:54 Seg Neutrophils % 69.7 % (40.0-70.0) 02/17/21 09:54 Seg Neutrophils # 3.9 K/mm3 (1.8-7.7) 02/17/21 09:54 Sodium 138 mmol/L (137-145) 02/17/21 09:54 Potassium 4.5 mmol/L (3.6-5.0) 02/17/21 09:54 Chloride 103.9 mmol/L (98-107) 02/17/21 09:54 Carbon Dioxide 25 mmol/L (22-30) 02/17/21 09:54 Anion Gap 14 mmol/L 02/17/21 09:54 BUN 22 mg/dL (7-17) H 02/17/21 09:54 Creatinine 1.1 mg/dL (0.6-1.2) 02/17/21 09:54 Estimated GFR 47 ml/min 02/17/21 09:54 BUN/Creatinine Ratio 20 % 02/17/21 09:54 Glucose 95 mg/dL (65-100) 02/17/21 09:54 POC Glucose 136 mg/dL (70-105) H 02/15/21 16:23 Hemoglobin A1c 5.4 % (4-6) 02/17/21 09:54 Calcium 9.9 mg/dL (8.4-10.2) 02/17/21 09:54 Total Bilirubin 0.50 mg/dL (0.1-1.2) 02/17/21 09:54 AST 89 units/L (5-40) H 02/17/21 09:54 ALT 57 units/L (7-56) H 02/17/21 09:54 Alkaline Phosphatase 105 units/L (35-129) 02/17/21 09:54 Total Protein 7.5 g/dL (6.3-8.2) 02/17/21 09:54 Albumin 3.7 g/dL (3.9-5) L 02/17/21 09:54 Albumin/Globulin Ratio 1.0 % 02/17/21 09:54 Triglycerides 101 mg/dL (2-149) 02/17/21 09:54 Cholesterol 181 mg/dL (50-199) 02/17/21 09:54 LDL Cholesterol Direct 119 mg/dL (50-130) 02/17/21 09:54 HDL Cholesterol 48 mg/dL (40-59) 02/17/21 09:54 Cholesterol/HDL Ratio 3.77 % 02/17/21 09:54 TSH 1.050 mlU/mL (0.270-4.200) 02/17/21 09:54 Last Vital Signs Temp 97.2 F L 02/21/21 09:28 Pulse 97 H 02/21/21 09:31 Resp 18 02/21/21 09:28 BP 136/68 02/21/21 09:28 Pulse Ox 95 02/21/21 09:30
[2021-02-21] MEDS: ONDANSETRON 4 MG ODT TAB PO PRN (17:03)
[2021-02-21] MEDS: MIRTAZAPINE 15 MG TAB PO SCH (21:52)
[2021-02-22] MEDS: risperiDONE 1 MG TAB PO SCH ×2 (10:00→22:07)
[2021-02-22] MEDS: CELECOXIB 200 MG CAP PO SCH (10:00)
[2021-02-22] MEDS: FERROUS SULFATE 325 MG TAB PO SCH (10:00)
[2021-02-22] MEDS: CETIRIZINE 10 MG TAB PO SCH (10:00)
[2021-02-22] MEDS: VALPROIC ACID 250 MG/5 ML ORAL LIQD PO SCH ×3 (10:02→22:06)
[2021-02-22] MEDS: CYANOCOBALAMIN (VIT B-12) 1000 MCG TAB PO SCH (10:02)
[2021-02-22] MEDS: PANTOPRAZOLE 40 MG TAB PO SCH (10:03)
[2021-02-22] MEDS: ONDANSETRON 4 MG ODT TAB PO PRN (10:03)
[2021-02-22] MEDS: GABAPENTIN 300 MG CAP PO SCH ×3 (10:03→22:08)
[2021-02-22] MEDS: FLUTICASONE PROPIONATE NASAL SPRAY 16 GM NS SCH (10:03)
--- NOTE | 2021-02-22 10:07 | Progress Note ---
Subjective Date of service: 02/22/21 Principal diagnosis: Dementia with Behavior Disturabance Subjective Comment: Per Psych Nurse: Patient was very talkative, loose association sit in the quiet room, she continues to talk and use inappropriate words sometimes. She was medications compliant, no acute distress noted. Staff will continue to redirect and monitor. Psych Progress HPI Walking to the patient's room, patient was talking to herself again, hyperverbal and having conversation in a Pleasant manner. Patient asked will you and then she says never mind. Patient complains of TV, cotninues to make incomprehensible sentences. Reason for continuing inpatient treatment: Pt is demented hence poor historian, extremly confused and paranoid, resistive to care and unable to care for self. WIll need psychiatric and mood stability. Review of Symptoms: Constitutional: Negative for weight loss ENT: Negative for stridor Respiratory: Negative for cough or hemoptysis All other systems reviewed and are negative MENTAL STATUS EXAMINATION General Appearance and Behavior: Age appropriate, good hygiene, wearing appropriate clothes, good eye contact, uncooperative, irritable Cooperation: withdrawn Psychomotor Behavior: unremarkable and within normal limits Mood: " no direct response" Affect and affective range: dysthymic Thought Process: illogical, Thought Content: obsessions, delusional Speech: Normal volume, Regular rate and rhythm, Intellectual Functioning: fair Suicidal Ideation: na Homicidal Ideation: na Impulse Control: impaired Insight and Judgment: poor insight and judgment, Memory: imparied Attention: divided Orientation: Alert, but confused and disoriented Treatment Plan Risperidone increased to 2mg BID, continue other meds Patient admitted for inpatient psychiatric evaluation, medication adjustment and close monitoring The patient's behavior, mood, sleep and appetite will be closely monitored. Patient enrolled in individual and group therapeutic sessions and encouraged to attend. Patient provided with a safe and structured environment. Patient's physical health needs will be addressed by the Hospitalist. Hospitalist Consulted Labs including CBC, CMP, Lipid profile and Hemoglobin A1C levels ordered for baseline reference Social Assessment will be completed and the Commissary Superintendent will work with patient and family to ensure a suitable and safe disposition Medication adjustment will be made as clinically indicated Usual Wellness Temple/Preservation: - Start Trazodone 50 mg po QHS & 50 mg po QHS PRN between 10 PM & 2 AM for insomnia - Start Melatonin 5 mg po QHS to promote circadian rhythm - Start [place]-3 for brain health, reduce impulsivity, and as adjunctive treatment for mood disorder, continue upon discharge given overall benefits. - Start B1 prophylaxis with 200 mg po for 5 days The patient agreed on the treatment plan, understood the risk, benefit, alternative treatment, potential consequence of no treatment, and gave informed consent. Initial Certification Inpatient psych services: I certify that the inpatient psychiatric services are required for treatment that could reasonably be expected to improve the patient's condition. Estimated days:5 Post hospital care: primary care provider, psychiatric provider Medications and Allergies Allergies Allergy/AdvReac Type Severity Reaction Status Date / Time Penicillins Allergy Rash Verified 02/15/21 12:31 Home Medications Medication Instructions Recorded Confirmed Last Taken Type Acetaminophen/Caff/Dihydrocod 1 each PO Q6HR PRN 02/15/21 02/15/21 Unknown History [Tcobmnvb-Vhc-Jjzpxlnhewfpd 325] Alendronate Sodium [Fosamax] 70 mg PO QWEEK 02/15/21 02/15/21 Unknown History AtorvaSTATin [Lipitor] 10 mg PO QHS 02/15/21 02/15/21 Unknown History Celecoxib 200 gm PO DAILY 02/15/21 02/15/21 Unknown History Cetirizine HCl [Cetirizine 5mg tab] 10 mg PO DAILY 02/15/21 02/15/21 Unknown History Cyanocobalamin (Vitamin B-12) 1,000 mcg PO DAILY 02/15/21 02/15/21 Unknown History [Vitamin B12] FLUoxetine HCL [PROzac] 40 mg PO QDAY 02/15/21 02/15/21 Unknown History Famotidine [Acid-Pep] 20 mg PO DAILY 02/15/21 02/15/21 Unknown History Ferrous Sulfate [Feosol] 325 mg PO QDAY 02/15/21 02/15/21 Unknown History Fluticasone [Flonase] 1 mcg BN DAILY 02/15/21 02/15/21 Unknown History Gabapentin [Neurontin] 300 mg PO TID 02/15/21 02/15/21 Unknown History Isosorbide Mononitrate [Isosorbide 30 mg PO DAILY 02/15/21 02/15/21 Unknown History Mononitrate ER] LORazepam [Lorazepam] 0.5 mg PO BID PRN 02/15/21 02/15/21 Unknown History oxyCODONE /ACETAMINOPHEN [Percocet 7.5 tab PO Q4HR 02/15/21 02/15/21 Unknown History 5325] traZODone [Desyrel] 50 mg PO QHS 02/15/21 02/15/21 Unknown History Active Meds: Active Medications Alendronate Sodium (Alendronate Sodium 70 Mg Tab) 70 mg PO Mo [facility] Atorvastatin Calcium (Atorvastatin 10 Mg Tab) 10 mg PO QHS [facility] Last Admin: 02/21/21 21:53 Dose: 10 mg Documented by: Celecoxib (Celecoxib 200 Mg Cap) 200 mg PO DAILY [facility] Last Admin: 02/21/21 09:26 Dose: 200 mg Documented by: Cetirizine HCl (Cetirizine 10 Mg Tab) 10 mg PO DAILY [facility] Last Admin: 02/21/21 09:25 Dose: 10 mg Documented by: Cyanocobalamin (Cyanocobalamin (Vit B-12) 1000 Mcg Tab) 1,000 mcg PO DAILY [facility] Last Admin: 02/21/21 09:25 Dose: 1,000 mcg Documented by: Ferrous Sulfate (Ferrous Sulfate 325 Mg Tab) 325 mg PO QDAY [facility] Last Admin: 02/21/21 09:26 Dose: 325 mg Documented by: Fluticasone Propionate (Fluticasone Propionate Nasal [place] 16 Gm) 50 mcg NS DAILY [facility] Last Admin: 02/21/21 09:25 Dose: 50 mcg Documented by: Gabapentin (Gabapentin 300 Mg Cap) 300 mg PO TID [facility] Last Admin: 02/21/21 21:54 Dose: 300 mg Documented by: Isosorbide Mononitrate (Isosorbide Mononitrate Er 30 Mg Tab) 30 mg PO DAILY [facility] Last Admin: 02/21/21 09:31 Dose: 30 mg Documented by: Lorazepam (Lorazepam 0.5 Mg Tab) 0.5 mg PO BID PRN PRN Reason: Agitation Melatonin (Melatonin 5 Mg Tab) 5 mg PO QHS PRN PRN Reason: Sleep Last Admin: 02/15/21 22:18 Dose: 5 mg Documented by: Mirtazapine (Mirtazapine 15 Mg Tab) 7.5 mg PO QHS [facility] Last Admin: 02/21/21 21:52 Dose: 7.5 mg Documented by: Miscellaneous Medication (Acetaminophen/Caff/Dihydrocod [Izgcpugr-Wgx-Lqvtxwshozuvm 325]) 1 each PO Q6HR PRN PRN Reason: Pain, Mild (1-3) Ondansetron HCl (Ondansetron 4 Mg Odt Tab) 4 mg PO Q8H PRN PRN Reason: Nausea And Vomiting Last Admin: 02/21/21 17:03 Dose: 4 mg Documented by: Ondansetron HCl (Ondansetron 8 Mg Odt Tab) 8 mg PO Q8H PRN PRN Reason: Nausea And Vomiting Pantoprazole Sodium (Pantoprazole 40 Mg Tab) 40 mg PO QDAC [facility] Last Admin: 02/21/21 09:26 Dose: 40 mg Documented by: Risperidone (Risperidone 1 Mg Tab) 1 mg PO BID [facility] Last Admin: 02/21/21 21:54 Dose: 1 mg Documented by: Valproic Acid (Valproic Acid 250 Mg/5 Ml Oral Liqd) 500 mg PO BID [facility] Results - Results Labs/Vitals: Laboratory Last Values WBC 5.6 K/mm3 (4.5-11.0) 02/17/21 09:54 RBC 4.90 M/mm3 (3.65-5.03) 02/17/21 09:54 Hgb 14.3 gm/dl (10.1-14.3) 02/17/21 09:54 Hct 43.1 % (30.3-42.9) H 02/17/21 09:54 MCV 88 fl (79-97) 02/17/21 09:54 MCH 29 pg (28-32) 02/17/21 09:54 MCHC 33 % (30-34) 02/17/21 09:54 RDW 16.3 % (13.2-15.2) H 02/17/21 09:54 Plt Count 228 K/mm3 (140-440) 02/17/21 09:54 Lymph % (Auto) 18.7 % (13.4-35.0) 02/17/21 09:54 [place] % (Auto) 10.1 % (0.0-7.3) H 02/17/21 09:54 Eos % (Auto) 1.0 % (0.0-4.3) 02/17/21 09:54 Baso % (Auto) 0.5 % (0.0-1.8) 02/17/21 09:54 Lymph # (Auto) 1.0 K/mm3 (1.2-5.4) L 02/17/21 09:54 [place] # (Auto) 0.6 K/mm3 (0.0-0.8) 02/17/21 09:54 Eos # (Auto) 0.1 K/mm3 (0.0-0.4) 02/17/21 09:54 Baso # (Auto) 0.0 K/mm3 (0.0-0.1) 02/17/21 09:54 Seg Neutrophils % 69.7 % (40.0-70.0) 02/17/21 09:54 Seg Neutrophils # 3.9 K/mm3 (1.8-7.7) 02/17/21 09:54 Sodium 138 mmol/L (137-145) 02/17/21 09:54 Potassium 4.5 mmol/L (3.6-5.0) 02/17/21 09:54 Chloride 103.9 mmol/L (98-107) 02/17/21 09:54 Carbon Dioxide 25 mmol/L (22-30) 02/17/21 09:54 Anion Gap 14 mmol/L 02/17/21 09:54 BUN 22 mg/dL (7-17) H 02/17/21 09:54 Creatinine 1.1 mg/dL (0.6-1.2) 02/17/21 09:54 Estimated GFR 47 ml/min 02/17/21 09:54 BUN/Creatinine Ratio 20 % 02/17/21 09:54 Glucose 95 mg/dL (65-100) 02/17/21 09:54 POC Glucose 136 mg/dL (70-105) H 02/15/21 16:23 Hemoglobin A1c 5.4 % (4-6) 02/17/21 09:54 Calcium 9.9 mg/dL (8.4-10.2) 02/17/21 09:54 Total Bilirubin 0.50 mg/dL (0.1-1.2) 02/17/21 09:54 AST 89 units/L (5-40) H 02/17/21 09:54 ALT 57 units/L (7-56) H 02/17/21 09:54 Alkaline Phosphatase 105 units/L (35-129) 02/17/21 09:54 Total Protein 7.5 g/dL (6.3-8.2) 02/17/21 09:54 Albumin 3.7 g/dL (3.9-5) L 02/17/21 09:54 Albumin/Globulin Ratio 1.0 % 02/17/21 09:54 Triglycerides 101 mg/dL (2-149) 02/17/21 09:54 Cholesterol 181 mg/dL (50-199) 02/17/21 09:54 LDL Cholesterol Direct 119 mg/dL (50-130) 02/17/21 09:54 HDL Cholesterol 48 mg/dL (40-59) 02/17/21 09:54 Cholesterol/HDL Ratio 3.77 % 02/17/21 09:54 TSH 1.050 mlU/mL (0.270-4.200) 02/17/21 09:54 Last Vital Signs Temp 97.3 F L 02/22/21 08:30 Pulse 92 H 02/22/21 08:30 Resp 18 02/22/21 08:30 BP 135/78 02/22/21 08:30 Pulse Ox 95 02/22/21 08:30
[2021-02-22] MEDS: MIRTAZAPINE 15 MG TAB PO SCH (22:06)
[2021-02-23] MEDS ORDERED: ALENDRONATE SODIUM 70 MG TAB PO SCH ×2 (06:30→10:00)
[2021-02-23] MEDS: PANTOPRAZOLE 40 MG TAB PO SCH (07:30)
[2021-02-23] MEDS ORDERED: ACETAMINOPHEN 325 MG TAB PO PRN (07:40)
--- NOTE | 2021-02-23 08:37 | Progress Note ---
Subjective Date of service: 02/23/21 Principal diagnosis: Dementia with Behavior Disturabance Subjective Comment: Per Psych Nurse:Pt received in the activity hyperborean and engaging and interacting with peers and staff. Denies pain, SI or HI. No acute distress observed and none reported. Will continue to monitor. Psych Progress HPI Continues to present as hyperverbal, constantly having a conversation with self in a third person manner. Medication changes done yesterday. obsevre for therapeutic response Reason for continuing inpatient treatment: Pt is demented hence poor historian, confused, resistive to care and unable to care for self. WIll need psychiatric and mood stability. Review of Symptoms: Constitutional: Negative for weight loss ENT: Negative for stridor Respiratory: Negative for cough or hemoptysis All other systems reviewed and are negative MENTAL STATUS EXAMINATION General Appearance and Behavior: Age appropriate, good hygiene, wearing appropr iate clothes, good eye contact, uncooperative, irritable Cooperation: withdrawn Psychomotor Behavior: unremarkable and within normal limits Mood: " no direct response" Affect and affective range: dysthymic Thought Process: illogical, Thought Content: obsessions, delusional Speech: Normal volume, Regular rate and rhythm, Intellectual Functioning: fair Suicidal Ideation: na Homicidal Ideation: na Impulse Control: impaired Insight and Judgment: poor insight and judgment, Memory: imparied Attention: divided Orientation: Alert, but confused and disoriented Treatment Plan Risperidone increased to 2mg BID, continue other meds Patient admitted for inpatient psychiatric evaluation, medication adjustment and close monitoring The patient's behavior, mood, sleep and appetite will be closely monitored. Patient enrolled in individual and group therapeutic sessions and encouraged to attend. Patient provided with a safe and structured environment. Patient's physical health needs will be addressed by the Hospitalist. Hospitalist Consulted Labs including CBC, CMP, Lipid profile and Hemoglobin A1C levels ordered for baseline reference Social Assessment will be completed and the Handle Maker will work with patient and family to ensure a suitable and safe disposition Medication adjustment will be made as clinically indicated Usual Wellness [place]/Preservation: - Start Trazodone 50 mg po QHS & 50 mg po QHS PRN between 10 PM & 2 AM for insomnia - Start Melatonin 5 mg po QHS to promote circadian rhythm - Start [place]-3 for brain health, reduce impulsivity, and as adjunctive treatment for mood disorder, continue upon discharge given overall benefits. - Start B1 prophylaxis with 200 mg po for 5 days The patient agreed on the treatment plan, understood the risk, benefit, alternative treatment, potential consequence of no treatment, and gave informed consent. Initial Certification Inpatient psych services: I certify that the inpatient psychiatric services are required for treatment that could reasonably be expected to improve the patient's condition. Estimated days:5 Post hospital care: primary care provider, psychiatric provider Medications and Allergies Allergies Allergy/AdvReac Type Severity Reaction Status Date / Time Penicillins Allergy Rash Verified 02/15/21 12:31 Home Medications Medication Instructions Recorded Confirmed Last Taken Type Acetaminophen/Caff/Dihydrocod 1 each PO Q6HR PRN 02/15/21 02/15/21 Unknown History [Bdkdclqa-Zop-Epelzykxtdigr 325] Alendronate Sodium [Fosamax] 70 mg PO QWEEK 02/15/21 02/15/21 Unknown History AtorvaSTATin [Lipitor] 10 mg PO QHS 02/15/21 02/15/21 Unknown History Celecoxib 200 gm PO DAILY 02/15/21 02/15/21 Unknown History Cetirizine HCl [Cetirizine 5mg tab] 10 mg PO DAILY 02/15/21 02/15/21 Unknown History Cyanocobalamin (Vitamin B-12) 1,000 mcg PO DAILY 02/15/21 02/15/21 Unknown History [Vitamin B12] FLUoxetine HCL [PROzac] 40 mg PO QDAY 02/15/21 02/15/21 Unknown History Famotidine [Acid-Pep] 20 mg PO DAILY 02/15/21 02/15/21 Unknown History Ferrous Sulfate [Feosol] 325 mg PO QDAY 02/15/21 02/15/21 Unknown History Fluticasone [Flonase] 1 mcg BN DAILY 02/15/21 02/15/21 Unknown History Gabapentin [Neurontin] 300 mg PO TID 02/15/21 02/15/21 Unknown History Isosorbide Mononitrate [Isosorbide 30 mg PO DAILY 02/15/21 02/15/21 Unknown History Mononitrate ER] LORazepam [Lorazepam] 0.5 mg PO BID PRN 02/15/21 02/15/21 Unknown History oxyCODONE /ACETAMINOPHEN [Percocet 7.5 tab PO Q4HR 02/15/21 02/15/21 Unknown History 5/325] traZODone [Desyrel] 50 mg PO QHS 02/15/21 02/15/21 Unknown History Active Meds: Active Medications Acetaminophen (Acetaminophen 325 Mg Tab) 325 mg PO Q6HR PRN PRN Reason: Pain, Mild (1-3) Alendronate Sodium (Alendronate Sodium 70 Mg Tab) 70 mg PO Mo [facility] Last Admin: 02/23/21 06:59 Dose: 70 mg Documented by: Atorvastatin Calcium (Atorvastatin 10 Mg Tab) 10 mg PO QHS [facility] Last Admin: 02/22/21 22:07 Dose: 10 mg Documented by: Celecoxib (Celecoxib 200 Mg Cap) 200 mg PO DAILY [facility] Last Admin: 02/22/21 10:00 Dose: 200 mg Documented by: Cetirizine HCl (Cetirizine 10 Mg Tab) 10 mg PO DAILY [facility] Last Admin: 02/22/21 10:00 Dose: 10 mg Documented by: Cyanocobalamin (Cyanocobalamin (Vit B-12) 1000 Mcg Tab) 1,000 mcg PO DAILY [facility] Last Admin: 02/22/21 10:02 Dose: 1,000 mcg Documented by: Ferrous Sulfate (Ferrous Sulfate 325 Mg Tab) 325 mg PO QDAY [facility] Last Admin: 02/22/21 10:00 Dose: 325 mg Documented by: Fluticasone Propionate (Fluticasone Propionate Nasal [place] 16 Gm) 50 mcg NS DAILY [facility] Last Admin: 02/22/21 10:03 Dose: 50 mcg Documented by: Gabapentin (Gabapentin 300 Mg Cap) 300 mg PO TID [facility] Last Admin: 02/22/21 22:08 Dose: 300 mg Documented by: Isosorbide Mononitrate (Isosorbide Mononitrate Er 30 Mg Tab) 30 mg PO DAILY [facility] Last Admin: 02/22/21 10:04 Dose: 30 mg Documented by: Lorazepam (Lorazepam 0.5 Mg Tab) 0.5 mg PO BID PRN PRN Reason: Agitation Melatonin (Melatonin 5 Mg Tab) 5 mg PO QHS PRN PRN Reason: Sleep Last Admin: 02/15/21 22:18 Dose: 5 mg Documented by: Mirtazapine (Mirtazapine 15 Mg Tab) 7.5 mg PO QHS [facility] Last Admin: 02/22/21 22:06 Dose: 7.5 mg Documented by: Ondansetron HCl (Ondansetron 4 Mg Odt Tab) 4 mg PO Q8H PRN PRN Reason: Nausea And Vomiting Last Admin: 02/22/21 10:03 Dose: 4 mg Documented by: Ondansetron HCl (Ondansetron 8 Mg Odt Tab) 8 mg PO Q8H PRN PRN Reason: Nausea And Vomiting Pantoprazole Sodium (Pantoprazole 40 Mg Tab) 40 mg PO QDAC [facility] Last Admin: 02/22/21 10:03 Dose: 40 mg Documented by: Risperidone (Risperidone 1 Mg Tab) 2 mg PO BID [facility] Last Admin: 02/22/21 22:07 Dose: 2 mg Documented by: Valproic Acid (Valproic Acid 250 Mg/5 Ml Oral Liqd) 500 mg PO BID [facility] Last Admin: 02/22/21 22:06 Dose: 500 mg Documented by: Results - Results Labs/Vitals: Laboratory Last Values WBC 5.6 K/mm3 (4.5-11.0) 02/17/21 09:54 RBC 4.90 M/mm3 (3.65-5.03) 02/17/21 09:54 Hgb 14.3 gm/dl (10.1-14.3) 02/17/21 09:54 Hct 43.1 % (30.3-42.9) H 02/17/21 09:54 MCV 88 fl (79-97) 02/17/21 09:54 MCH 29 pg (28-32) 02/17/21 09:54 MCHC 33 % (30-34) 02/17/21 09:54 RDW 16.3 % (13.2-15.2) H 02/17/21 09:54 Plt Count 228 K/mm3 (140-440) 02/17/21 09:54 Lymph % (Auto) 18.7 % (13.4-35.0) 02/17/21 09:54 [place] % (Auto) 10.1 % (0.0-7.3) H 02/17/21 09:54 Eos % (Auto) 1.0 % (0.0-4.3) 02/17/21 09:54 Baso % (Auto) 0.5 % (0.0-1.8) 02/17/21 09:54 Lymph # (Auto) 1.0 K/mm3 (1.2-5.4) L 02/17/21 09:54 [place] # (Auto) 0.6 K/mm3 (0.0-0.8) 02/17/21 09:54 Eos # (Auto) 0.1 K/mm3 (0.0-0.4) 02/17/21 09:54 Baso # (Auto) 0.0 K/mm3 (0.0-0.1) 02/17/21 09:54 Seg Neutrophils % 69.7 % (40.0-70.0) 02/17/21 09:54 Seg Neutrophils # 3.9 K/mm3 (1.8-7.7) 02/17/21 09:54 Sodium 138 mmol/L (137-145) 02/17/21 09:54 Potassium 4.5 mmol/L (3.6-5.0) 02/17/21 09:54 Chloride 103.9 mmol/L (98-107) 02/17/21 09:54 Carbon Dioxide 25 mmol/L (22-30) 02/17/21 09:54 Anion Gap 14 mmol/L 02/17/21 09:54 BUN 22 mg/dL (7-17) H 02/17/21 09:54 Creatinine 1.1 mg/dL (0.6-1.2) 02/17/21 09:54 Estimated GFR 47 ml/min 02/17/21 09:54 BUN/Creatinine Ratio 20 % 02/17/21 09:54 Glucose 95 mg/dL (65-100) 02/17/21 09:54 POC Glucose 136 mg/dL (70-105) H 02/15/21 16:23 Hemoglobin A1c 5.4 % (4-6) 02/17/21 09:54 Calcium 9.9 mg/dL (8.4-10.2) 02/17/21 09:54 Total Bilirubin 0.50 mg/dL (0.1-1.2) 02/17/21 09:54 AST 89 units/L (5-40) H 02/17/21 09:54 ALT 57 units/L (7-56) H 02/17/21 09:54 Alkaline Phosphatase 105 units/L (35-129) 02/17/21 09:54 Total Protein 7.5 g/dL (6.3-8.2) 02/17/21 09:54 Albumin 3.7 g/dL (3.9-5) L 02/17/21 09:54 Albumin/Globulin Ratio 1.0 % 02/17/21 09:54 Triglycerides 101 mg/dL (2-149) 02/17/21 09:54 Cholesterol 181 mg/dL (50-199) 02/17/21 09:54 LDL Cholesterol Direct 119 mg/dL (50-130) 02/17/21 09:54 HDL Cholesterol 48 mg/dL (40-59) 02/17/21 09:54 Cholesterol/HDL Ratio 3.77 % 02/17/21 09:54 TSH 1.050 mlU/mL (0.270-4.200) 02/17/21 09:54 Last Vital Signs Temp 97.4 F L 02/22/21 20:19 Pulse 93 H 02/22/21 20:19 Resp 16 02/22/21 20:19 BP 134/76 02/22/21 20:19 Pulse Ox 99 02/22/21 20:19
[2021-02-23] MEDS: GABAPENTIN 300 MG CAP PO SCH ×3 (08:43→21:20)
[2021-02-23] MEDS: risperiDONE 1 MG TAB PO SCH ×2 (09:22→21:20)
[2021-02-23] MEDS: FERROUS SULFATE 325 MG TAB PO SCH (09:22)
[2021-02-23] MEDS: CYANOCOBALAMIN (VIT B-12) 1000 MCG TAB PO SCH (09:23)
[2021-02-23] MEDS: FLUTICASONE PROPIONATE NASAL SPRAY 16 GM NS SCH (09:23)
[2021-02-23] MEDS: VALPROIC ACID 250 MG/5 ML ORAL LIQD PO SCH ×2 (09:23→21:22)
--- NOTE | 2021-02-23 12:45 | Progress Note ---
Assessment and Plan - Patient Problems (1) Vascular dementia with behavior disturbance Current Visit: Yes Status: Acute Plan to address problem: Verbal prompting, verbal redirection, benzodiazepine therapy as clinically indicated. (2) Cerebral atherosclerosis Current Visit: Yes Status: Acute Plan to address problem: Risk factor reduction, antiplatelet therapy as clinically indicated, supportive care. (3) Hypertension Current Visit: Yes Status: Acute Qualifiers: Hypertension type: essential hypertension Qualified Code(s): I10 - Essential (primary) hypertension Plan to address problem: Monitor blood pressure every shift, continue medical management. (4) CAD (coronary artery disease) Current Visit: Yes Status: Acute Plan to address problem: Antiplatelet therapy as clinically indicated, risk factor reduction, supportive care. (5) Osteoporosis Current Visit: Yes Status: Acute Plan to address problem: Continue alendronate, supportive care. History Interval history: 85 YO Female with Vascular Dementia with Behavioral Disturbance, Cerebral Atherosclerosis, Anemia, CAD, Osteoperosis admitted to [facility] for Psychiatric stabilization. Patient resting comfortably while sitting in the dayroom. Pt has tangential thinking. No reported nursing events. Patient denies pain. Patient cooperative with therapy. Hospitalist Physical - Constitutional Vitals: Temp Pulse Resp BP Pulse Ox 97.4 F L 101 H 16 131/63 99 02/22/21 20:19 02/23/21 09:20 02/22/21 20:19 02/23/21 09:20 02/22/21 20:19 General appearance: Present: no acute distress, well-nourished - EENT Eyes: Present: PERRL, EOM intact ENT: hearing decreased - Neck Neck: Present: supple - Respiratory Respiratory: bilateral: CTA - Cardiovascular Rhythm: regular Heart Sounds: Present: S1 & S2 - Extremities Extremities: no ischemia Peripheral Pulses: within normal limits - Abdominal General gastrointestinal: soft, non-tender, non-distended - Integumentary Integumentary: Present: clear, dry - Psychiatric Psychiatric: no intact judgment & insight, no memory intact, cooperative - Neurologic Neurologic: CNII-XII intact Results - Labs CBC & Chem 7: 02/17/21 09:54 02/17/21 09:54 Labs: Laboratory Last Values WBC 5.6 K/mm3 (4.5-11.0) 02/17/21 09:54 RBC 4.90 M/mm3 (3.65-5.03) 02/17/21 09:54 Hgb 14.3 gm/dl (10.1-14.3) 02/17/21 09:54 Hct 43.1 % (30.3-42.9) H 02/17/21 09:54 MCV 88 fl (79-97) 02/17/21 09:54 MCH 29 pg (28-32) 02/17/21 09:54 MCHC 33 % (30-34) 02/17/21 09:54 RDW 16.3 % (13.2-15.2) H 02/17/21 09:54 Plt Count 228 K/mm3 (140-440) 02/17/21 09:54 Lymph % (Auto) 18.7 % (13.4-35.0) 02/17/21 09:54 [place] % (Auto) 10.1 % (0.0-7.3) H 02/17/21 09:54 Eos % (Auto) 1.0 % (0.0-4.3) 02/17/21 09:54 Baso % (Auto) 0.5 % (0.0-1.8) 02/17/21 09:54 Lymph # (Auto) 1.0 K/mm3 (1.2-5.4) L 02/17/21 09:54 [place] # (Auto) 0.6 K/mm3 (0.0-0.8) 02/17/21 09:54 Eos # (Auto) 0.1 K/mm3 (0.0-0.4) 02/17/21 09:54 Baso # (Auto) 0.0 K/mm3 (0.0-0.1) 02/17/21 09:54 Seg Neutrophils % 69.7 % (40.0-70.0) 02/17/21 09:54 Seg Neutrophils # 3.9 K/mm3 (1.8-7.7) 02/17/21 09:54 Sodium 138 mmol/L (137-145) 02/17/21 09:54 Potassium 4.5 mmol/L (3.6-5.0) 02/17/21 09:54 Chloride 103.9 mmol/L (98-107) 02/17/21 09:54 Carbon Dioxide 25 mmol/L (22-30) 02/17/21 09:54 Anion Gap 14 mmol/L 02/17/21 09:54 BUN 22 mg/dL (7-17) H 02/17/21 09:54 Creatinine 1.1 mg/dL (0.6-1.2) 02/17/21 09:54 Estimated GFR 47 ml/min 02/17/21 09:54 BUN/Creatinine Ratio 20 % 02/17/21 09:54 Glucose 95 mg/dL (65-100) 02/17/21 09:54 POC Glucose 136 mg/dL (70-105) H 02/15/21 16:23 Hemoglobin A1c 5.4 % (4-6) 02/17/21 09:54 Calcium 9.9 mg/dL (8.4-10.2) 02/17/21 09:54 Total Bilirubin 0.50 mg/dL (0.1-1.2) 02/17/21 09:54 AST 89 units/L (5-40) H 02/17/21 09:54 ALT 57 units/L (7-56) H 02/17/21 09:54 Alkaline Phosphatase 105 units/L (35-129) 02/17/21 09:54 Total Protein 7.5 g/dL (6.3-8.2) 02/17/21 09:54 Albumin 3.7 g/dL (3.9-5) L 02/17/21 09:54 Albumin/Globulin Ratio 1.0 % 02/17/21 09:54 Triglycerides 101 mg/dL (2-149) 02/17/21 09:54 Cholesterol 181 mg/dL (50-199) 02/17/21 09:54 LDL Cholesterol Direct 119 mg/dL (50-130) 02/17/21 09:54 HDL Cholesterol 48 mg/dL (40-59) 02/17/21 09:54 Cholesterol/HDL Ratio 3.77 % 02/17/21 09:54 TSH 1.050 mlU/mL (0.270-4.200) 02/17/21 09:54 Shankar/IV: Voiding Method Toilet Active Medications - Current Medications Current Medications: Generic Name Dose Route Start Last Admin Trade Name Freq PRN Reason Stop Dose Admin Acetaminophen 325 mg 02/23/21 07:40 Acetaminophen 325 Mg Tab PO Q6HR PRN Pain, Mild (1-3) Alendronate Sodium 70 mg 02/23/21 06:30 02/23/21 06:59 Alendronate Sodium 70 Mg Tab PO 70 mg Mo JEFFREY Administration Atorvastatin Calcium 10 mg 02/16/21 22:00 02/22/21 22:07 Atorvastatin 10 Mg Tab PO 10 mg QHS JEFFREY Administration Cyanocobalamin 1,000 mcg 02/17/21 10:00 02/23/21 09:23 Cyanocobalamin (Vit B-12) 1000 Mcg Tab PO 1,000 mcg DAILY JEFFREY Administration Ferrous Sulfate 325 mg 02/16/21 11:00 02/23/21 09:22 Ferrous Sulfate 325 Mg Tab PO 325 mg QDAY JEFFREY Administration Fluticasone Propionate 50 mcg 02/17/21 10:00 02/23/21 09:23 Fluticasone Propionate Nasal [place] 16 Gm NS 50 mcg DAILY JEFFREY Administration Gabapentin 300 mg 02/16/21 14:00 02/23/21 08:43 Gabapentin 300 Mg Cap PO 300 mg TID JEFFREY Administration Isosorbide Mononitrate 30 mg 02/16/21 11:00 02/23/21 09:20 Isosorbide Mononitrate Er 30 Mg Tab PO 30 mg DAILY JEFFREY Administration Lorazepam 0.5 mg 02/16/21 10:53 Lorazepam 0.5 Mg Tab PO BID PRN Agitation Melatonin 5 mg 02/15/21 11:43 02/15/21 22:18 Melatonin 5 Mg Tab PO 5 mg QHS PRN Administration Sleep Mirtazapine 7.5 mg 02/17/21 22:00 02/22/21 22:06 Mirtazapine 15 Mg Tab PO 7.5 mg QHS JEFFREY Administration Ondansetron HCl 4 mg 02/16/21 11:53 02/22/21 10:03 Ondansetron 4 Mg Odt Tab PO 4 mg Q8H PRN Administration Nausea And Vomiting Pantoprazole Sodium 40 mg 02/17/21 07:30 02/23/21 07:30 Pantoprazole 40 Mg Tab PO 40 mg QDAC JEFFREY Administration Quetiapine Fumarate 50 mg 02/23/21 22:00 Quetiapine 25 Mg Tab PO QHS JEFFREY Risperidone 2 mg 02/22/21 22:00 02/23/21 09:22 Risperidone 1 Mg Tab PO 2 mg BID JEFFREY Administration Valproic Acid 500 mg 02/22/21 10:00 02/23/21 09:23 Valproic Acid 250 Mg/5 Ml Oral Liqd PO 500 mg BID JEFFREY Administration Nutrition/Malnutrition Assess - Dietary Evaluation Nutrition/Malnutrition Findings: Nutrition Notes Start: 02/23/21 10:05 Freq: Status: Active Protocol: Document 02/23/21 10:05 TATYANA (Rec: 02/23/21 10:16 TATYANA [id number]) Nutrition Notes Need for Assessment generated from: LOS Initial or Follow up Assessment Other Pertinent Diagnosis Dementia with behavior disturbance Current Diet Regular Labs/Tests No recent available Pertinent Medications Fosamax, Vitamin B12, Feosol, Remeron Height 5 ft 6 in Weight 61.235 kg [place] Body Weight (kg) 59.09 BMI 21.7 Weight Status Underweight Subjective/Other Information Pt screened for LOS. She has consumed 42% of meals since admission. Percent of energy/protein needs met: 68% energy 61% pro Burn Absent Trauma Absent Skin Integrity/Comment Noah score: 22 Current % PO Poor (25-49%) Minimum of two criteria No #1 Nutrition Diagnosis Inadequate protein-energy intake Etiology advanced age, dementia As Evidenced by Signs and Symptoms PO intake meeting <75% energy and pro needs; pt underweight for age Is patient on ventilator? No Is Patient Ambulatory and/or Out of Bed Yes REE-([place]-ambulatory/OOB) [ 1409.330 NUTR.MSJOOB] Kcal/Kg value to use for calculation 27 Approximate Energy Requirements Using 1653 kcal/Kg Calculation Used for Recommendations Kcal/kg Additional Notes Pro needs 1-1.2 g/k-73g/ day Fluid needs 1ml/kcal Nutrition Intervention Change Diet Order: Continue current diet order Add Supplement/Snack (indicate name/kcal Ensure Enlive BID /protein ) Provides kCal: 700 Provides Protein (gm) 40 Goal #1 PO intake of meals plus ONS to meet 80-100% of energy and pro needs Goal #2 Wt maintenance Anticipated Discharge Needs: Continue ONS 1-2 times daily for wt maintenance Follow-Up By: 02/27/21 Additional Comments F/U: intakes (meals/ONS)
--- NOTE | 2021-02-23 20:23 | Progress Note ---
Assessment and Plan - Patient Problems (1) Vascular dementia with behavior disturbance Current Visit: Yes Status: Acute Plan to address problem: Verbal prompting, verbal redirection, benzodiazepine therapy as clinically indicated. (2) Cerebral atherosclerosis Current Visit: Yes Status: Acute Plan to address problem: Risk factor reduction, antiplatelet therapy as clinically indicated, supportive care. (3) Hypertension Current Visit: Yes Status: Acute Qualifiers: Hypertension type: essential hypertension Qualified Code(s): I10 - Essential (primary) hypertension Plan to address problem: Monitor blood pressure every shift, continue medical management. (4) CAD (coronary artery disease) Current Visit: Yes Status: Acute Plan to address problem: Antiplatelet therapy as clinically indicated, risk factor reduction, supportive care. (5) Osteoporosis Current Visit: Yes Status: Acute Plan to address problem: Continue alendronate, supportive care. History Interval history: 85 YO Female with Vascular Dementia with Behavioral Disturbance, Cerebral Atherosclerosis, Anemia, CAD, Osteoperosis admitted to [facility] for Psychiatric stabilization. Patient resting comfortably while sitting in the dayroom. Pt has tangential thinking. No reported nursing events. Patient denies pain. Patient cooperative with therapy. Hospitalist Physical - Constitutional Vitals: Temp Pulse Resp BP Pulse Ox 97.3 F L 101 H 18 131/63 97 02/23/21 08:59 02/23/21 09:20 02/23/21 08:59 02/23/21 09:20 02/23/21 08:59 General appearance: Present: no acute distress, well-nourished - EENT Eyes: Present: PERRL ENT: hearing decreased - Neck Neck: Present: supple - Respiratory Respiratory effort: normal Respiratory: bilateral: CTA - Cardiovascular Rhythm: regular Heart Sounds: Present: S1 & S2 - Extremities Extremities: no ischemia Peripheral Pulses: within normal limits - Abdominal General gastrointestinal: deferred, non-tender, non-distended - Integumentary Integumentary: Present: clear, dry - Psychiatric Psychiatric: cooperative - Neurologic Neurologic: CNII-XII intact Results - Labs CBC & Chem 7: 02/17/21 09:54 02/17/21 09:54 Labs: Laboratory Last Values WBC 5.6 K/mm3 (4.5-11.0) 02/17/21 09:54 RBC 4.90 M/mm3 (3.65-5.03) 02/17/21 09:54 Hgb 14.3 gm/dl (10.1-14.3) 02/17/21 09:54 Hct 43.1 % (30.3-42.9) H 02/17/21 09:54 MCV 88 fl (79-97) 02/17/21 09:54 MCH 29 pg (28-32) 02/17/21 09:54 MCHC 33 % (30-34) 02/17/21 09:54 RDW 16.3 % (13.2-15.2) H 02/17/21 09:54 Plt Count 228 K/mm3 (140-440) 02/17/21 09:54 Lymph % (Auto) 18.7 % (13.4-35.0) 02/17/21 09:54 [place] % (Auto) 10.1 % (0.0-7.3) H 02/17/21 09:54 Eos % (Auto) 1.0 % (0.0-4.3) 02/17/21 09:54 Baso % (Auto) 0.5 % (0.0-1.8) 02/17/21 09:54 Lymph # (Auto) 1.0 K/mm3 (1.2-5.4) L 02/17/21 09:54 [place] # (Auto) 0.6 K/mm3 (0.0-0.8) 02/17/21 09:54 Eos # (Auto) 0.1 K/mm3 (0.0-0.4) 02/17/21 09:54 Baso # (Auto) 0.0 K/mm3 (0.0-0.1) 02/17/21 09:54 Seg Neutrophils % 69.7 % (40.0-70.0) 02/17/21 09:54 Seg Neutrophils # 3.9 K/mm3 (1.8-7.7) 02/17/21 09:54 Sodium 138 mmol/L (137-145) 02/17/21 09:54 Potassium 4.5 mmol/L (3.6-5.0) 02/17/21 09:54 Chloride 103.9 mmol/L (98-107) 02/17/21 09:54 Carbon Dioxide 25 mmol/L (22-30) 02/17/21 09:54 Anion Gap 14 mmol/L 02/17/21 09:54 BUN 22 mg/dL (7-17) H 02/17/21 09:54 Creatinine 1.1 mg/dL (0.6-1.2) 02/17/21 09:54 Estimated GFR 47 ml/min 02/17/21 09:54 BUN/Creatinine Ratio 20 % 02/17/21 09:54 Glucose 95 mg/dL (65-100) 02/17/21 09:54 POC Glucose 136 mg/dL (70-105) H 02/15/21 16:23 Hemoglobin A1c 5.4 % (4-6) 02/17/21 09:54 Calcium 9.9 mg/dL (8.4-10.2) 02/17/21 09:54 Total Bilirubin 0.50 mg/dL (0.1-1.2) 02/17/21 09:54 AST 89 units/L (5-40) H 02/17/21 09:54 ALT 57 units/L (7-56) H 02/17/21 09:54 Alkaline Phosphatase 105 units/L (35-129) 02/17/21 09:54 Total Protein 7.5 g/dL (6.3-8.2) 02/17/21 09:54 Albumin 3.7 g/dL (3.9-5) L 02/17/21 09:54 Albumin/Globulin Ratio 1.0 % 02/17/21 09:54 Triglycerides 101 mg/dL (2-149) 02/17/21 09:54 Cholesterol 181 mg/dL (50-199) 02/17/21 09:54 LDL Cholesterol Direct 119 mg/dL (50-130) 02/17/21 09:54 HDL Cholesterol 48 mg/dL (40-59) 02/17/21 09:54 Cholesterol/HDL Ratio 3.77 % 02/17/21 09:54 TSH 1.050 mlU/mL (0.270-4.200) 02/17/21 09:54 Shankar/IV: Voiding Method Toilet Active Medications - Current Medications Current Medications: Generic Name Dose Route Start Last Admin Trade Name Freq PRN Reason Stop Dose Admin Acetaminophen 325 mg 02/23/21 07:40 Acetaminophen 325 Mg Tab PO Q6HR PRN Pain, Mild (1-3) Alendronate Sodium 70 mg 02/23/21 06:30 02/23/21 06:59 Alendronate Sodium 70 Mg Tab PO 70 mg Mo JEFFREY Administration Atorvastatin Calcium 10 mg 02/16/21 22:00 02/22/21 22:07 Atorvastatin 10 Mg Tab PO 10 mg QHS JEFFREY Administration Cyanocobalamin 1,000 mcg 02/17/21 10:00 02/23/21 09:23 Cyanocobalamin (Vit B-12) 1000 Mcg Tab PO 1,000 mcg DAILY JEFFREY Administration Ferrous Sulfate 325 mg 02/16/21 11:00 02/23/21 09:22 Ferrous Sulfate 325 Mg Tab PO 325 mg QDAY JEFFREY Administration Fluticasone Propionate 50 mcg 02/17/21 10:00 02/23/21 09:23 Fluticasone Propionate Nasal [place] 16 Gm NS 50 mcg DAILY JEFFREY Administration Gabapentin 300 mg 02/16/21 14:00 02/23/21 14:00 Gabapentin 300 Mg Cap PO 300 mg TID JEFFREY Administration Isosorbide Mononitrate 30 mg 02/16/21 11:00 02/23/21 09:20 Isosorbide Mononitrate Er 30 Mg Tab PO 30 mg DAILY JEFFREY Administration Lorazepam 0.5 mg 02/16/21 10:53 Lorazepam 0.5 Mg Tab PO BID PRN Agitation Melatonin 5 mg 02/15/21 11:43 02/15/21 22:18 Melatonin 5 Mg Tab PO 5 mg QHS PRN Administration Sleep Mirtazapine 7.5 mg 02/17/21 22:00 02/22/21 22:06 Mirtazapine 15 Mg Tab PO 7.5 mg QHS JEFFREY Administration Ondansetron HCl 4 mg 02/16/21 11:53 02/22/21 10:03 Ondansetron 4 Mg Odt Tab PO 4 mg Q8H PRN Administration Nausea And Vomiting Pantoprazole Sodium 40 mg 02/17/21 07:30 02/23/21 07:30 Pantoprazole 40 Mg Tab PO 40 mg QDAC JEFFREY Administration Quetiapine Fumarate 50 mg 02/23/21 22:00 Quetiapine 25 Mg Tab PO QHS JEFFREY Risperidone 2 mg 02/22/21 22:00 02/23/21 09:22 Risperidone 1 Mg Tab PO 2 mg BID JEFFREY Administration Valproic Acid 500 mg 02/22/21 10:00 02/23/21 09:23 Valproic Acid 250 Mg/5 Ml Oral Liqd PO 500 mg BID JEFFREY Administration Nutrition/Malnutrition Assess - Dietary Evaluation Nutrition/Malnutrition Findings: Nutrition Notes Start: 02/23/21 10:05 Freq: Status: Active Protocol: Document 02/23/21 10:05 TATYANA (Rec: 02/23/21 10:16 TATYANA [id number]) Nutrition Notes Need for Assessment generated from: LOS Initial or Follow up Assessment Other Pertinent Diagnosis Dementia with behavior disturbance Current Diet Regular Labs/Tests No recent available Pertinent Medications Fosamax, Vitamin B12, Feosol, Remeron Height 5 ft 6 in Weight 61.235 kg [place] Body Weight (kg) 59.09 BMI 21.7 Weight Status Underweight Subjective/Other Information Pt screened for LOS. She has consumed 42% of meals since admission. Percent of energy/protein needs met: 68% energy 61% pro Burn Absent Trauma Absent Skin Integrity/Comment Noah score: 22 Current % PO Poor (25-49%) Minimum of two criteria No #1 Nutrition Diagnosis Inadequate protein-energy intake Etiology advanced age, dementia As Evidenced by Signs and Symptoms PO intake meeting <75% energy and pro needs; pt underweight for age Is patient on ventilator? No Is Patient Ambulatory and/or Out of Bed Yes REE-([place] [facility]-ambulatory/OOB) [ 1409.330 NUTR.MSJOOB] Kcal/Kg value to use for calculation 27 Approximate Energy Requirements Using 1653 kcal/Kg Calculation Used for Recommendations Kcal/kg Additional Notes Pro needs 1-1.2 g/k-73g/ day Fluid needs 1ml/kcal Nutrition Intervention Change Diet Order: Continue current diet order Add Supplement/Snack (indicate name/kcal Ensure Enlive BID /protein ) Provides kCal: 700 Provides Protein (gm) 40 Goal #1 PO intake of meals plus ONS to meet 80-100% of energy and pro needs Goal #2 Wt maintenance Anticipated Discharge Needs: Continue ONS 1-2 times daily for wt maintenance Follow-Up By: 02/27/21 Additional Comments F/U: intakes (meals/ONS)
[2021-02-23] MEDS: QUEtiapine 25 MG TAB PO SCH (21:21)
[2021-02-23] MEDS: MIRTAZAPINE 15 MG TAB PO SCH (21:21)
--- NOTE | 2021-02-24 08:48 | Progress Note ---
Subjective Date of service: 02/24/21 Principal diagnosis: Dementia with Behavior Disturabance Subjective Comment: Per Psych Nurse:Last evening the patient was quieter. She was able to focus and play cards with a peer. However, her gait is more impaired with ambulation. She denies si/hi. She presents as though she has some vh/vh. Her appetite is fair. She is medication compliant. Overnight the patient rested quietly and slept 8 hours. Will continue to monitor patient for safety. Psych Progress HPI Patient seen this a.m., patient appears very pleasant, she reports feeling a little bit wobbly from sleep but endorses having a very good night rest. Aaliyah ent stated that she is not really hungry at the moment she would like to stay in bed and rest a bit more. Though patient tend to use curse words in between her conversation but not directly towards others. Reason for continuing inpatient treatment: Improve care compliance, cooperative and decreased agitation. WIll continue to observe for mood stability. Review of Symptoms: Constitutional: Negative for weight loss ENT: Negative for stridor Respiratory: Negative for cough or hemoptysis All other systems reviewed and are negative MENTAL STATUS EXAMINATION General Appearance and Behavior: Age appropriate, good hygiene, wearing appropriate clothes, good eye contact, cooperative, polite Cooperation: engaged Psychomotor Behavior: unremarkable and within normal limits Mood: "I feel good" Affect and affective range: congruent with mood Thought Process: illogical, Thought Content: obsessions Speech: Normal volume, Regular rate and rhythm, Intellectual Functioning: fair Suicidal Ideation: na Homicidal Ideation: na Impulse Control: impaired Insight and Judgment: poor insight and judgment, Memory: impaired Attention: divided Orientation: Alert, but confused and disoriented Treatment Plan Risperidone increased to 2mg BID, continue other meds Patient admitted for inpatient psychiatric evaluation, medication adjustment and close monitoring The patient's behavior, mood, sleep and appetite will be closely monitored. Patient enrolled in individual and group therapeutic sessions and encouraged to attend. Patient provided with a safe and structured environment. Patient's physical health needs will be addressed by the Hospitalist. Hospitalist Consulted Labs including CBC, CMP, Lipid profile and Hemoglobin A1C levels ordered for baseline reference Social Assessment will be completed and the Double Needle Operator Lockstitch will work with patient and family to ensure a suitable and safe disposition Medication adjustment will be made as clinically indicated Usual Wellness Worship/Preservation: - Start Trazodone 50 mg po QHS & 50 mg po QHS PRN between 10 PM & 2 AM for insomnia - Start Melatonin 5 mg po QHS to promote circadian rhythm - Start [place]-3 for brain health, reduce impulsivity, and as adjunctive treatment for mood disorder, continue upon discharge given overall benefits. - Start B1 prophylaxis with 200 mg po for 5 days The patient agreed on the treatment plan, understood the risk, benefit, alternative treatment, potential consequence of no treatment, and gave informed consent. Initial Certification Inpatient psych services: I certify that the inpatient psychiatric services are required for treatment that could reasonably be expected to improve the patient's condition. Estimated days:3 Post hospital care: primary care provider, psychiatric provider Medications and Allergies Allergies Allergy/AdvReac Type Severity Reaction Status Date / Time Penicillins Allergy Rash Verified 02/15/21 12:31 Home Medications Medication Instructions Recorded Confirmed Last Taken Type Acetaminophen/Caff/Dihydrocod 1 each PO Q6HR PRN 02/15/21 02/15/21 Unknown History [Oeuphqez-Uoe-Rqsuhfqzvqola 325] Alendronate Sodium [Fosamax] 70 mg PO QWEEK 02/15/21 02/15/21 Unknown History AtorvaSTATin [Lipitor] 10 mg PO QHS 02/15/21 02/15/21 Unknown History Celecoxib 200 gm PO DAILY 02/15/21 02/15/21 Unknown History Cetirizine HCl [Cetirizine 5mg tab] 10 mg PO DAILY 02/15/21 02/15/21 Unknown History Cyanocobalamin (Vitamin B-12) 1,000 mcg PO DAILY 02/15/21 02/15/21 Unknown History [Vitamin B12] FLUoxetine HCL [PROzac] 40 mg PO QDAY 02/15/21 02/15/21 Unknown History Famotidine [Acid-Pep] 20 mg PO DAILY 02/15/21 02/15/21 Unknown History Ferrous Sulfate [Feosol] 325 mg PO QDAY 02/15/21 02/15/21 Unknown History Fluticasone [Flonase] 1 mcg BN DAILY 02/15/21 02/15/21 Unknown History Gabapentin [Neurontin] 300 mg PO TID 02/15/21 02/15/21 Unknown History Isosorbide Mononitrate [Isosorbide 30 mg PO DAILY 02/15/21 02/15/21 Unknown History Mononitrate ER] LORazepam [Lorazepam] 0.5 mg PO BID PRN 02/15/21 02/15/21 Unknown History oxyCODONE /ACETAMINOPHEN [Percocet 7.5 tab PO Q4HR 02/15/21 02/15/21 Unknown History 5/325] traZODone [Desyrel] 50 mg PO QHS 02/15/21 02/15/21 Unknown History Active Meds: Active Medications Acetaminophen (Acetaminophen 325 Mg Tab) 325 mg PO Q6HR PRN PRN Reason: Pain, Mild (1-3) Alendronate Sodium (Alendronate Sodium 70 Mg Tab) 70 mg PO Mo [facility] Last Admin: 02/23/21 06:59 Dose: 70 mg Documented by: Atorvastatin Calcium (Atorvastatin 10 Mg Tab) 10 mg PO QHS [facility] Last Admin: 02/23/21 21:21 Dose: 10 mg Documented by: Cyanocobalamin (Cyanocobalamin (Vit B-12) 1000 Mcg Tab) 1,000 mcg PO DAILY [facility] Last Admin: 02/23/21 09:23 Dose: 1,000 mcg Documented by: Ferrous Sulfate (Ferrous Sulfate 325 Mg Tab) 325 mg PO QDAY [facility] Last Admin: 02/23/21 09:22 Dose: 325 mg Documented by: Fluticasone Propionate (Fluticasone Propionate Nasal [place] 16 Gm) 50 mcg NS DAILY [facility] Last Admin: 02/23/21 09:23 Dose: 50 mcg Documented by: Gabapentin (Gabapentin 300 Mg Cap) 300 mg PO TID [facility] Last Admin: 02/23/21 21:20 Dose: 300 mg Documented by: Isosorbide Mononitrate (Isosorbide Mononitrate Er 30 Mg Tab) 30 mg PO DAILY [facility] Last Admin: 02/23/21 09:20 Dose: 30 mg Documented by: Lorazepam (Lorazepam 0.5 Mg Tab) 0.5 mg PO BID PRN PRN Reason: Agitation Melatonin (Melatonin 5 Mg Tab) 5 mg PO QHS PRN PRN Reason: Sleep Last Admin: 02/15/21 22:18 Dose: 5 mg Documented by: Mirtazapine (Mirtazapine 15 Mg Tab) 7.5 mg PO QHS [facility] Last Admin: 02/23/21 21:21 Dose: 7.5 mg Documented by: Ondansetron HCl (Ondansetron 4 Mg Odt Tab) 4 mg PO Q8H PRN PRN Reason: Nausea And Vomiting Last Admin: 02/22/21 10:03 Dose: 4 mg Documented by: Pantoprazole Sodium (Pantoprazole 40 Mg Tab) 40 mg PO QDAC [facility] Last Admin: 02/23/21 07:30 Dose: 40 mg Documented by: Quetiapine Fumarate (Quetiapine 25 Mg Tab) 50 mg PO QHS [facility] Last Admin: 02/23/21 21:21 Dose: 50 mg Documented by: Risperidone (Risperidone 1 Mg Tab) 2 mg PO BID [facility] Last Admin: 02/23/21 21:20 Dose: 2 mg Documented by: Valproic Acid (Valproic Acid 250 Mg/5 Ml Oral Liqd) 500 mg PO BID [facility] Last Admin: 02/23/21 21:22 Dose: 500 mg Documented by: Results - Results Labs/Vitals: Laboratory Last Values WBC 5.6 K/mm3 (4.5-11.0) 02/17/21 09:54 RBC 4.90 M/mm3 (3.65-5.03) 02/17/21 09:54 Hgb 14.3 gm/dl (10.1-14.3) 02/17/21 09:54 Hct 43.1 % (30.3-42.9) H 02/17/21 09:54 MCV 88 fl (79-97) 02/17/21 09:54 MCH 29 pg (28-32) 02/17/21 09:54 MCHC 33 % (30-34) 02/17/21 09:54 RDW 16.3 % (13.2-15.2) H 02/17/21 09:54 Plt Count 228 K/mm3 (140-440) 02/17/21 09:54 Lymph % (Auto) 18.7 % (13.4-35.0) 02/17/21 09:54 [place] % (Auto) 10.1 % (0.0-7.3) H 02/17/21 09:54 Eos % (Auto) 1.0 % (0.0-4.3) 02/17/21 09:54 Baso % (Auto) 0.5 % (0.0-1.8) 02/17/21 09:54 Lymph # (Auto) 1.0 K/mm3 (1.2-5.4) L 02/17/21 09:54 [place] # (Auto) 0.6 K/mm3 (0.0-0.8) 02/17/21 09:54 Eos # (Auto) 0.1 K/mm3 (0.0-0.4) 02/17/21 09:54 Baso # (Auto) 0.0 K/mm3 (0.0-0.1) 02/17/21 09:54 Seg Neutrophils % 69.7 % (40.0-70.0) 02/17/21 09:54 Seg Neutrophils # 3.9 K/mm3 (1.8-7.7) 02/17/21 09:54 Sodium 138 mmol/L (137-145) 02/17/21 09:54 Potassium 4.5 mmol/L (3.6-5.0) 02/17/21 09:54 Chloride 103.9 mmol/L (98-107) 02/17/21 09:54 Carbon Dioxide 25 mmol/L (22-30) 02/17/21 09:54 Anion Gap 14 mmol/L 02/17/21 09:54 BUN 22 mg/dL (7-17) H 02/17/21 09:54 Creatinine 1.1 mg/dL (0.6-1.2) 02/17/21 09:54 Estimated GFR 47 ml/min 02/17/21 09:54 BUN/Creatinine Ratio 20 % 02/17/21 09:54 Glucose 95 mg/dL (65-100) 02/17/21 09:54 POC Glucose 136 mg/dL (70-105) H 02/15/21 16:23 Hemoglobin A1c 5.4 % (4-6) 02/17/21 09:54 Calcium 9.9 mg/dL (8.4-10.2) 02/17/21 09:54 Total Bilirubin 0.50 mg/dL (0.1-1.2) 02/17/21 09:54 AST 89 units/L (5-40) H 02/17/21 09:54 ALT 57 units/L (7-56) H 02/17/21 09:54 Alkaline Phosphatase 105 units/L (35-129) 02/17/21 09:54 Total Protein 7.5 g/dL (6.3-8.2) 02/17/21 09:54 Albumin 3.7 g/dL (3.9-5) L 02/17/21 09:54 Albumin/Globulin Ratio 1.0 % 02/17/21 09:54 Triglycerides 101 mg/dL (2-149) 02/17/21 09:54 Cholesterol 181 mg/dL (50-199) 02/17/21 09:54 LDL Cholesterol Direct 119 mg/dL (50-130) 02/17/21 09:54 HDL Cholesterol 48 mg/dL (40-59) 02/17/21 09:54 Cholesterol/HDL Ratio 3.77 % 02/17/21 09:54 TSH 1.050 mlU/mL (0.270-4.200) 02/17/21 09:54 Last Vital Signs Temp 97.8 F 02/23/21 20:13 Pulse 90 02/23/21 20:13 Resp 20 02/23/21 20:13 BP 142/71 02/23/21 20:13 Pulse Ox 96 02/23/21 20:13
[2021-02-24] MEDS: FERROUS SULFATE 325 MG TAB PO SCH (09:47)
[2021-02-24] MEDS: GABAPENTIN 300 MG CAP PO SCH ×3 (09:48→21:31)
[2021-02-24] MEDS: CYANOCOBALAMIN (VIT B-12) 1000 MCG TAB PO SCH (09:48)
[2021-02-24] MEDS: risperiDONE 1 MG TAB PO SCH ×2 (09:48→21:31)
[2021-02-24] MEDS: VALPROIC ACID 250 MG/5 ML ORAL LIQD PO SCH ×2 (09:48→21:31)
[2021-02-24] MEDS: PANTOPRAZOLE 40 MG TAB PO SCH (09:48)
[2021-02-24] MEDS: FLUTICASONE PROPIONATE NASAL SPRAY 16 GM NS SCH (09:49)
[2021-02-24] MEDS: MIRTAZAPINE 15 MG TAB PO SCH (21:31)
[2021-02-24] MEDS: QUEtiapine 25 MG TAB PO SCH (21:32)
--- NOTE | 2021-02-25 08:54 | Progress Note ---
Subjective Date of service: 02/25/21 Principal diagnosis: Dementia with Behavior Disturabance Subjective Comment: Per Psych Nurse:010 Pt pleasantly confused, less talkative today and med compliant. Interacting with peers in the activity room. Staff will continue to monitor Psych Progress HPI Patient in room, sleeping and resting comfortably, denies having any comlaints, endorses sleeping well and states she feels good. Reason for continuing inpatient treatment: Improve care compliance, cooperative and decreased agitation. WIll continue to observe for mood stability. Review of Symptoms: Constitutional: Negative for weight loss ENT: Negative for stridor Respiratory: Negative for cough or hemoptysis All other systems reviewed and are negative MENTAL STATUS EXAMINATION General Appearance and Behavior: Age appropriate, good hygiene, wearing appropriate clothes, good eye contact, cooperative, polite Cooperation: engaged Psychomotor Behavior: unremarkable and within normal limits Mood: "I feel good" Affect and affective range: congruent with mood Thought Process: logical, Thought Content: Improved thought content to reality. Speech: Normal volume, Regular rate and rhythm, Intellectual Functioning: fair Suicidal Ideation: na Homicidal Ideation: na Impulse Control: decreased impulses Insight and Judgment: poor insight and judgment, Memory: impaired Attention: divided Orientation: Alert, but confused and disoriented Treatment Plan Risperidone increased to 2mg BID, continue other meds Patient admitted for inpatient psychiatric evaluation, medication adjustment and close monitoring The patient's behavior, mood, sleep and appetite will be closely monitored. Patient enrolled in individual and group therapeutic sessions and encouraged to attend. Patient provided with a safe and structured environment. Patient's physical health needs will be addressed by the Hospitalist. Hospitalist Consulted Labs including CBC, CMP, Lipid profile and Hemoglobin A1C levels ordered for baseline reference Social Assessment will be completed and the Burlesque Dancer will work with patient and family to ensure a suitable and safe disposition Medication adjustment will be made as clinically indicated Usual Wellness Tenriism/Preservation: - Start Trazodone 50 mg po QHS & 50 mg po QHS PRN between 10 PM & 2 AM for insomnia - Start Melatonin 5 mg po QHS to promote circadian rhythm - Start [place]-3 for brain health, reduce impulsivity, and as adjunctive treatment for mood disorder, continue upon discharge given overall benefits. - Start B1 prophylaxis with 200 mg po for 5 days The patient agreed on the treatment plan, understood the risk, benefit, alternative treatment, potential consequence of no treatment, and gave informed consent. Initial Certification Inpatient psych services: I certify that the inpatient psychiatric services are required for treatment that could reasonably be expected to improve the patient's condition. Estimated days:3 Post hospital care: primary care provider, psychiatric provider Medications and Allergies Allergies Allergy/AdvReac Type Severity Reaction Status Date / Time Penicillins Allergy Rash Verified 02/15/21 12:31 Home Medications Medication Instructions Recorded Confirmed Last Taken Type Acetaminophen/Caff/Dihydrocod 1 each PO Q6HR PRN 02/15/21 02/15/21 Unknown History [Ugjkzqfb-Xvo-Almqsnqzobnww 325] Alendronate Sodium [Fosamax] 70 mg PO QWEEK 02/15/21 02/15/21 Unknown History AtorvaSTATin [Lipitor] 10 mg PO QHS 02/15/21 02/15/21 Unknown History Celecoxib 200 gm PO DAILY 02/15/21 02/15/21 Unknown History Cetirizine HCl [Cetirizine 5mg tab] 10 mg PO DAILY 02/15/21 02/15/21 Unknown History Cyanocobalamin (Vitamin B-12) 1,000 mcg PO DAILY 02/15/21 02/15/21 Unknown History [Vitamin B12] FLUoxetine HCL [PROzac] 40 mg PO QDAY 02/15/21 02/15/21 Unknown History Famotidine [Acid-Pep] 20 mg PO DAILY 02/15/21 02/15/21 Unknown History Ferrous Sulfate [Feosol] 325 mg PO QDAY 02/15/21 02/15/21 Unknown History Fluticasone [Flonase] 1 mcg BN DAILY 02/15/21 02/15/21 Unknown History Gabapentin [Neurontin] 300 mg PO TID 02/15/21 02/15/21 Unknown History Isosorbide Mononitrate [Isosorbide 30 mg PO DAILY 02/15/21 02/15/21 Unknown History Mononitrate ER] LORazepam [Lorazepam] 0.5 mg PO BID PRN 02/15/21 02/15/21 Unknown History oxyCODONE /ACETAMINOPHEN [Percocet 7.5 tab PO Q4HR 02/15/21 02/15/21 Unknown History 5/325] traZODone [Desyrel] 50 mg PO QHS 02/15/21 02/15/21 Unknown History Active Meds: Active Medications Acetaminophen (Acetaminophen 325 Mg Tab) 325 mg PO Q6HR PRN PRN Reason: Pain, Mild (1-3) Alendronate Sodium (Alendronate Sodium 70 Mg Tab) 70 mg PO Mo [facility] Last Admin: 02/23/21 06:59 Dose: 70 mg Documented by: Atorvastatin Calcium (Atorvastatin 10 Mg Tab) 10 mg PO QHS [facility] Last Admin: 02/24/21 21:31 Dose: 10 mg Documented by: Cyanocobalamin (Cyanocobalamin (Vit B-12) 1000 Mcg Tab) 1,000 mcg PO DAILY [facility] Last Admin: 02/24/21 09:48 Dose: 1,000 mcg Documented by: Ferrous Sulfate (Ferrous Sulfate 325 Mg Tab) 325 mg PO QDAY [facility] Last Admin: 02/24/21 09:47 Dose: 325 mg Documented by: Fluticasone Propionate (Fluticasone Propionate Nasal [place] 16 Gm) 50 mcg NS DAILY [facility] Last Admin: 02/24/21 09:49 Dose: 50 mcg Documented by: Gabapentin (Gabapentin 300 Mg Cap) 300 mg PO TID [facility] Last Admin: 02/24/21 21:31 Dose: 300 mg Documented by: Isosorbide Mononitrate (Isosorbide Mononitrate Er 30 Mg Tab) 30 mg PO DAILY [facility] Last Admin: 02/24/21 09:47 Dose: 30 mg Documented by: Lorazepam (Lorazepam 0.5 Mg Tab) 0.5 mg PO BID PRN PRN Reason: Agitation Melatonin (Melatonin 5 Mg Tab) 5 mg PO QHS PRN PRN Reason: Sleep Last Admin: 02/15/21 22:18 Dose: 5 mg Documented by: Mirtazapine (Mirtazapine 15 Mg Tab) 7.5 mg PO QHS [facility] Last Admin: 02/24/21 21:31 Dose: 7.5 mg Documented by: Ondansetron HCl (Ondansetron 4 Mg Odt Tab) 4 mg PO Q8H PRN PRN Reason: Nausea And Vomiting Last Admin: 02/22/21 10:03 Dose: 4 mg Documented by: Pantoprazole Sodium (Pantoprazole 40 Mg Tab) 40 mg PO QDAC [facility] Last Admin: 02/24/21 09:48 Dose: 40 mg Documented by: Quetiapine Fumarate (Quetiapine 25 Mg Tab) 50 mg PO QHS [facility] Last Admin: 02/24/21 21:32 Dose: 50 mg Documented by: Risperidone (Risperidone 1 Mg Tab) 2 mg PO BID [facility] Last Admin: 02/24/21 21:31 Dose: 2 mg Documented by: Valproic Acid (Valproic Acid 250 Mg/5 Ml Oral Liqd) 500 mg PO BID [facility] Last Admin: 02/24/21 21:31 Dose: 500 mg Documented by: Results - Results Labs/Vitals: Laboratory Last Values WBC 5.6 K/mm3 (4.5-11.0) 02/17/21 09:54 RBC 4.90 M/mm3 (3.65-5.03) 02/17/21 09:54 Hgb 14.3 gm/dl (10.1-14.3) 02/17/21 09:54 Hct 43.1 % (30.3-42.9) H 02/17/21 09:54 MCV 88 fl (79-97) 02/17/21 09:54 MCH 29 pg (28-32) 02/17/21 09:54 MCHC 33 % (30-34) 02/17/21 09:54 RDW 16.3 % (13.2-15.2) H 02/17/21 09:54 Plt Count 228 K/mm3 (140-440) 02/17/21 09:54 Lymph % (Auto) 18.7 % (13.4-35.0) 02/17/21 09:54 [place] % (Auto) 10.1 % (0.0-7.3) H 02/17/21 09:54 Eos % (Auto) 1.0 % (0.0-4.3) 02/17/21 09:54 Baso % (Auto) 0.5 % (0.0-1.8) 02/17/21 09:54 Lymph # (Auto) 1.0 K/mm3 (1.2-5.4) L 02/17/21 09:54 [place] # (Auto) 0.6 K/mm3 (0.0-0.8) 02/17/21 09:54 Eos # (Auto) 0.1 K/mm3 (0.0-0.4) 02/17/21 09:54 Baso # (Auto) 0.0 K/mm3 (0.0-0.1) 02/17/21 09:54 Seg Neutrophils % 69.7 % (40.0-70.0) 02/17/21 09:54 Seg Neutrophils # 3.9 K/mm3 (1.8-7.7) 02/17/21 09:54 Sodium 138 mmol/L (137-145) 02/17/21 09:54 Potassium 4.5 mmol/L (3.6-5.0) 02/17/21 09:54 Chloride 103.9 mmol/L (98-107) 02/17/21 09:54 Carbon Dioxide 25 mmol/L (22-30) 02/17/21 09:54 Anion Gap 14 mmol/L 02/17/21 09:54 BUN 22 mg/dL (7-17) H 02/17/21 09:54 Creatinine 1.1 mg/dL (0.6-1.2) 02/17/21 09:54 Estimated GFR 47 ml/min 02/17/21 09:54 BUN/Creatinine Ratio 20 % 02/17/21 09:54 Glucose 95 mg/dL (65-100) 02/17/21 09:54 POC Glucose 136 mg/dL (70-105) H 02/15/21 16:23 Hemoglobin A1c 5.4 % (4-6) 02/17/21 09:54 Calcium 9.9 mg/dL (8.4-10.2) 02/17/21 09:54 Total Bilirubin 0.50 mg/dL (0.1-1.2) 02/17/21 09:54 AST 89 units/L (5-40) H 02/17/21 09:54 ALT 57 units/L (7-56) H 02/17/21 09:54 Alkaline Phosphatase 105 units/L (35-129) 02/17/21 09:54 Total Protein 7.5 g/dL (6.3-8.2) 02/17/21 09:54 Albumin 3.7 g/dL (3.9-5) L 02/17/21 09:54 Albumin/Globulin Ratio 1.0 % 02/17/21 09:54 Triglycerides 101 mg/dL (2-149) 02/17/21 09:54 Cholesterol 181 mg/dL (50-199) 02/17/21 09:54 LDL Cholesterol Direct 119 mg/dL (50-130) 02/17/21 09:54 HDL Cholesterol 48 mg/dL (40-59) 02/17/21 09:54 Cholesterol/HDL Ratio 3.77 % 02/17/21 09:54 TSH 1.050 mlU/mL (0.270-4.200) 02/17/21 09:54 Last Vital Signs Temp 97.3 F L 02/24/21 19:44 Pulse 74 02/24/21 19:44 Resp 18 02/24/21 19:44 BP 124/67 02/24/21 19:44 Pulse Ox 94 02/24/21 19:44
[2021-02-25] MEDS: GABAPENTIN 300 MG CAP PO SCH ×3 (08:57→21:16)
[2021-02-25] MEDS: PANTOPRAZOLE 40 MG TAB PO SCH (08:58)
[2021-02-25] MEDS: risperiDONE 1 MG TAB PO SCH ×2 (11:43→21:16)
[2021-02-25] MEDS: CYANOCOBALAMIN (VIT B-12) 1000 MCG TAB PO SCH (11:44)
[2021-02-25] MEDS: VALPROIC ACID 250 MG/5 ML ORAL LIQD PO SCH ×2 (11:44→21:17)
[2021-02-25] MEDS: FERROUS SULFATE 325 MG TAB PO SCH (11:48)
[2021-02-25] MEDS: FLUTICASONE PROPIONATE NASAL SPRAY 16 GM NS SCH (12:10)
[2021-02-25] MEDS: QUEtiapine 25 MG TAB PO SCH (21:16)
[2021-02-25] MEDS: MIRTAZAPINE 15 MG TAB PO SCH (21:16)
[2021-02-26] MEDS: PANTOPRAZOLE 40 MG TAB PO SCH (06:40)
--- NOTE | 2021-02-26 09:21 | Progress Note ---
Subjective Date of service: 02/26/21 Principal diagnosis: Dementia with Behavior Disturabance Subjective Comment: Per Psych Nurse:pt spent last evening in bed resting with eyes opened, pt is alert and oriented to person, confused, calm and cooperative, able to make needs known, medication compliant, consumed 75% of bedtime snack, no distress noted, will continue to monitor for safety. Psych Progress HPI Patient states she is fine today, and proceeded to asked why I am all dressed. I informed patient I am one of the care providers here, she then giggles and says she knows what that means, that is it means I part of the ones that make people feel better. Reason for continuing inpatient treatment: Improve care compliance, cooperative and decreased agitation. WIll continue to observe for mood stability. Review of Symptoms: Constitutional: Negative for weight loss ENT: Negative for stridor Respiratory: Negative for cough or hemoptysis All other systems reviewed and are negative MENTAL STATUS EXAMINATION General Appearance and Behavior: Age appropriate, good hygiene, wearing appropriate clothes, good eye contact, cooperative, polite Cooperation: engaged Psychomotor Behavior: unremarkable and within normal limits Mood: "I feel good" Affect and affective range: congruent with mood Thought Process: logical, Thought Content: Improved thought content to reality. Speech: Normal volume, Regular rate and rhythm, Intellectual Functioning: fair Suicidal Ideation: na Homicidal Ideation: na Impulse Control: decreased impulses Insight and Judgment: poor insight and judgment, Memory: impaired Attention: divided Orientation: Alert, but confused and disoriented Treatment Plan Risperidone increased to 2mg BID, continue other meds Patient admitted for inpatient psychiatric evaluation, medication adjustment and close monitoring The patient's behavior, mood, sleep and appetite will be closely monitored. Patient enrolled in individual and group therapeutic sessions and encouraged to attend. Patient provided with a safe and structured environment. Patient's physical health needs will be addressed by the Hospitalist. Hospi aramisist Consulted Labs including CBC, CMP, Lipid profile and Hemoglobin A1C levels ordered for baseline reference Social Assessment will be completed and the Videotape Sales Representative will work with patient and family to ensure a suitable and safe disposition Medication adjustment will be made as clinically indicated Usual Wellness Confucianism/Preservation: - Start Trazodone 50 mg po QHS & 50 mg po QHS PRN between 10 PM & 2 AM for insomnia - Start Melatonin 5 mg po QHS to promote circadian rhythm - Start [place]-3 for brain health, reduce impulsivity, and as adjunctive treatment for mood disorder, continue upon discharge given overall benefits. - Start B1 prophylaxis with 200 mg po for 5 days The patient agreed on the treatment plan, understood the risk, benefit, alternative treatment, potential consequence of no treatment, and gave informed consent. Initial Certification Inpatient psych services: I certify that the inpatient psychiatric services are required for treatment that could reasonably be expected to improve the patient's condition. Estimated days:3 Post hospital care: primary care provider, psychiatric provider Medications and Allergies Allergies Allergy/AdvReac Type Severity Reaction Status Date / Time Penicillins Allergy Rash Verified 02/15/21 12:31 Home Medications Medication Instructions Recorded Confirmed Last Taken Type Acetaminophen/Caff/Dihydrocod 1 each PO Q6HR PRN 02/15/21 02/15/21 Unknown History [[id number]-[id number]-Panhoiimmhfyh 325] Alendronate Sodium [Fosamax] 70 mg PO QWEEK 02/15/21 02/15/21 Unknown History AtorvaSTATin [Lipitor] 10 mg PO QHS 02/15/21 02/15/21 Unknown History Celecoxib 200 gm PO DAILY 02/15/21 02/15/21 Unknown History Cetirizine HCl [Cetirizine 5mg tab] 10 mg PO DAILY 02/15/21 02/15/21 Unknown History Cyanocobalamin (Vitamin B-12) 1,000 mcg PO DAILY 02/15/21 02/15/21 Unknown History [Vitamin B12] FLUoxetine HCL [PROzac] 40 mg PO QDAY 02/15/21 02/15/21 Unknown History Famotidine [Acid-Pep] 20 mg PO DAILY 02/15/21 02/15/21 Unknown History Ferrous Sulfate [Feosol] 325 mg PO QDAY 02/15/21 02/15/21 Unknown History Fluticasone [Flonase] 1 mcg BN DAILY 02/15/21 02/15/21 Unknown History Gabapentin [Neurontin] 300 mg PO TID 02/15/21 02/15/21 Unknown History Isosorbide Mononitrate [Isosorbide 30 mg PO DAILY 02/15/21 02/15/21 Unknown History Mononitrate ER] LORazepam [Lorazepam] 0.5 mg PO BID PRN 02/15/21 02/15/21 Unknown History oxyCODONE /ACETAMINOPHEN [Percocet 7.5 tab PO Q4HR 02/15/21 02/15/21 Unknown History 5/325] traZODone [Desyrel] 50 mg PO QHS 02/15/21 02/15/21 Unknown History Active Meds: Active Medications Acetaminophen (Acetaminophen 325 Mg Tab) 325 mg PO Q6HR PRN PRN Reason: Pain, Mild (1-3) Alendronate Sodium (Alendronate Sodium 70 Mg Tab) 70 mg PO Mo [facility] Last Admin: 02/23/21 06:59 Dose: 70 mg Documented by: Atorvastatin Calcium (Atorvastatin 10 Mg Tab) 10 mg PO QHS [facility] Last Admin: 02/25/21 21:16 Dose: 10 mg Documented by: Cyanocobalamin (Cyanocobalamin (Vit B-12) 1000 Mcg Tab) 1,000 mcg PO DAILY [facility] Last Admin: 02/25/21 11:44 Dose: 1,000 mcg Documented by: Ferrous Sulfate (Ferrous Sulfate 325 Mg Tab) 325 mg PO QDAY [facility] Last Admin: 02/25/21 11:48 Dose: 325 mg Documented by: Fluticasone Propionate (Fluticasone Propionate Nasal [place] 16 Gm) 50 mcg NS DAILY [facility] Last Admin: 02/25/21 12:10 Dose: Not Given Documented by: Gabapentin (Gabapentin 300 Mg Cap) 300 mg PO TID [facility] Last Admin: 02/25/21 21:16 Dose: 300 mg Documented by: Isosorbide Mononitrate (Isosorbide Mononitrate Er 30 Mg Tab) 30 mg PO DAILY [facility] Last Admin: 02/25/21 11:46 Dose: 30 mg Documented by: Lorazepam (Lorazepam 0.5 Mg Tab) 0.5 mg PO BID PRN PRN Reason: Agitation Melatonin (Melatonin 5 Mg Tab) 5 mg PO QHS PRN PRN Reason: Sleep Last Admin: 02/15/21 22:18 Dose: 5 mg Documented by: Mirtazapine (Mirtazapine 15 Mg Tab) 7.5 mg PO QHS [facility] Last Admin: 02/25/21 21:16 Dose: 7.5 mg Documented by: Ondansetron HCl (Ondansetron 4 Mg Odt Tab) 4 mg PO Q8H PRN PRN Reason: Nausea And Vomiting Last Admin: 02/22/21 10:03 Dose: 4 mg Documented by: Pantoprazole Sodium (Pantoprazole 40 Mg Tab) 40 mg PO QDAC [facility] Last Admin: 02/26/21 06:40 Dose: 40 mg Documented by: Quetiapine Fumarate (Quetiapine 25 Mg Tab) 50 mg PO QHS [facility] Last Admin: 02/25/21 21:16 Dose: 50 mg Documented by: Risperidone (Risperidone 1 Mg Tab) 2 mg PO BID [facility] Last Admin: 02/25/21 21:16 Dose: 2 mg Documented by: Valproic Acid (Valproic Acid 250 Mg/5 Ml Oral Liqd) 500 mg PO BID [facility] Last Admin: 02/25/21 21:17 Dose: 500 mg Documented by: Results - Results Labs/Vitals: Laboratory Last Values WBC 5.6 K/mm3 (4.5-11.0) 02/17/21 09:54 RBC 4.90 M/mm3 (3.65-5.03) 02/17/21 09:54 Hgb 14.3 gm/dl (10.1-14.3) 02/17/21 09:54 Hct 43.1 % (30.3-42.9) H 02/17/21 09:54 MCV 88 fl (79-97) 02/17/21 09:54 MCH 29 pg (28-32) 02/17/21 09:54 MCHC 33 % (30-34) 02/17/21 09:54 RDW 16.3 % (13.2-15.2) H 02/17/21 09:54 Plt Count 228 K/mm3 (140-440) 02/17/21 09:54 Lymph % (Auto) 18.7 % (13.4-35.0) 02/17/21 09:54 [place] % (Auto) 10.1 % (0.0-7.3) H 02/17/21 09:54 Eos % (Auto) 1.0 % (0.0-4.3) 02/17/21 09:54 Baso % (Auto) 0.5 % (0.0-1.8) 02/17/21 09:54 Lymph # (Auto) 1.0 K/mm3 (1.2-5.4) L 02/17/21 09:54 [place] # (Auto) 0.6 K/mm3 (0.0-0.8) 02/17/21 09:54 Eos # (Auto) 0.1 K/mm3 (0.0-0.4) 02/17/21 09:54 Baso # (Auto) 0.0 K/mm3 (0.0-0.1) 02/17/21 09:54 Seg Neutrophils % 69.7 % (40.0-70.0) 02/17/21 09:54 Seg Neutrophils # 3.9 K/mm3 (1.8-7.7) 02/17/21 09:54 Sodium 138 mmol/L (137-145) 02/17/21 09:54 Potassium 4.5 mmol/L (3.6-5.0) 02/17/21 09:54 Chloride 103.9 mmol/L (98-107) 02/17/21 09:54 Carbon Dioxide 25 mmol/L (22-30) 02/17/21 09:54 Anion Gap 14 mmol/L 02/17/21 09:54 BUN 22 mg/dL (7-17) H 02/17/21 09:54 Creatinine 1.1 mg/dL (0.6-1.2) 02/17/21 09:54 Estimated GFR 47 ml/min 02/17/21 09:54 BUN/Creatinine Ratio 20 % 02/17/21 09:54 Glucose 95 mg/dL (65-100) 02/17/21 09:54 POC Glucose 136 mg/dL (70-105) H 02/15/21 16:23 Hemoglobin A1c 5.4 % (4-6) 02/17/21 09:54 Calcium 9.9 mg/dL (8.4-10.2) 02/17/21 09:54 Total Bilirubin 0.50 mg/dL (0.1-1.2) 02/17/21 09:54 AST 89 units/L (5-40) H 02/17/21 09:54 ALT 57 units/L (7-56) H 02/17/21 09:54 Alkaline Phosphatase 105 units/L (35-129) 02/17/21 09:54 Total Protein 7.5 g/dL (6.3-8.2) 02/17/21 09:54 Albumin 3.7 g/dL (3.9-5) L 02/17/21 09:54 Albumin/Globulin Ratio 1.0 % 02/17/21 09:54 Triglycerides 101 mg/dL (2-149) 02/17/21 09:54 Cholesterol 181 mg/dL (50-199) 02/17/21 09:54 LDL Cholesterol Direct 119 mg/dL (50-130) 02/17/21 09:54 HDL Cholesterol 48 mg/dL (40-59) 02/17/21 09:54 Cholesterol/HDL Ratio 3.77 % 02/17/21 09:54 TSH 1.050 mlU/mL (0.270-4.200) 02/17/21 09:54 Coronavirus (PCR) Negative (Negative) 02/25/21 Unknown Last Vital Signs Temp 98.4 F 02/25/21 21:00 Pulse 94 H 02/25/21 21:00 Resp 18 02/25/21 21:00 BP 155/71 02/25/21 21:00 Pulse Ox 96 02/25/21 21:00
[2021-02-26] MEDS: FLUTICASONE PROPIONATE NASAL SPRAY 16 GM NS SCH (09:54)
[2021-02-26] MEDS: VALPROIC ACID 250 MG/5 ML ORAL LIQD PO SCH ×2 (09:55→21:24)
[2021-02-26] MEDS: FERROUS SULFATE 325 MG TAB PO SCH (09:55)
[2021-02-26] MEDS: risperiDONE 1 MG TAB PO SCH ×2 (09:55→21:24)
[2021-02-26] MEDS: GABAPENTIN 300 MG CAP PO SCH ×3 (09:55→20:51)
[2021-02-26] MEDS: CYANOCOBALAMIN (VIT B-12) 1000 MCG TAB PO SCH (09:58)
[2021-02-26] MEDS: MIRTAZAPINE 15 MG TAB PO SCH (21:25)
[2021-02-26] MEDS: QUEtiapine 25 MG TAB PO SCH (21:25)
[2021-02-27] MEDS: PANTOPRAZOLE 40 MG TAB PO SCH (07:34)
--- NOTE | 2021-02-27 09:09 | Discharge Summary ---
Providers - Providers Date of Admission: 02/15/21 11:05 Date of discharge: 02/27/21 Attending physician: AMANDA LIU MD 02/15/21 08:54 Consult to Physician [CONS] Routine Comment: Consulting Provider: EDIN MCKEON Physician Instructions: Reason For Exam: manage medical conditions Primary care physician: FREIGHT AGENT Hospitalization Reason for admission: psychosis Admitting Diagnosis: F02.81 - DEMENTIA IN OTH DISEASES CLASSD ELSWHR W BEHAVIORAL DISTURB Condition: Stable Hospital course: The patient was provided inpatient psychiatric treatment with safe and supportive care, medication adjustment, adverse effect monitoring, medical evaluations, medical treatments, assessment and psycho-education. The patient's mood, cognition, behavior, moral support are improved and stabilized. St the time of discharge, the patient had no endangering behavior and no debilitating adverse effects. The patient agreed on potential consequences of no treatment and gave informed consent. Disposition: DC- TO HOME OR SELFCARE Time spent for discharge: 39 Allergies/Adverse Reactions: Allergies Penicillins Allergy (Verified 02/15/21 12:31) Rash Vital Signs: Last Vital Signs Temp 98.0 F 02/26/21 21:00 Pulse 100 H 02/26/21 21:00 Resp 18 02/26/21 21:00 BP 130/77 02/26/21 21:00 Pulse Ox 97 02/26/21 21:00 Last Lab: Laboratory Last Values WBC 5.6 K/mm3 (4.5-11.0) 02/17/21 09:54 RBC 4.90 M/mm3 (3.65-5.03) 02/17/21 09:54 Hgb 14.3 gm/dl (10.1-14.3) 02/17/21 09:54 Hct 43.1 % (30.3-42.9) H 02/17/21 09:54 MCV 88 fl (79-97) 02/17/21 09:54 MCH 29 pg (28-32) 02/17/21 09:54 MCHC 33 % (30-34) 02/17/21 09:54 RDW 16.3 % (13.2-15.2) H 02/17/21 09:54 Plt Count 228 K/mm3 (140-440) 02/17/21 09:54 Lymph % (Auto) 18.7 % (13.4-35.0) 02/17/21 09:54 [place] % (Auto) 10.1 % (0.0-7.3) H 02/17/21 09:54 Eos % (Auto) 1.0 % (0.0-4.3) 02/17/21 09:54 Baso % (Auto) 0.5 % (0.0-1.8) 02/17/21 09:54 Lymph # (Auto) 1.0 K/mm3 (1.2-5.4) L 02/17/21 09:54 [place] # (Auto) 0.6 K/mm3 (0.0-0.8) 02/17/21 09:54 Eos # (Auto) 0.1 K/mm3 (0.0-0.4) 02/17/21 09:54 Baso # (Auto) 0.0 K/mm3 (0.0-0.1) 02/17/21 09:54 Seg Neutrophils % 69.7 % (40.0-70.0) 02/17/21 09:54 Seg Neutrophils # 3.9 K/mm3 (1.8-7.7) 02/17/21 09:54 Sodium 138 mmol/L (137-145) 02/17/21 09:54 Potassium 4.5 mmol/L (3.6-5.0) 02/17/21 09:54 Chloride 103.9 mmol/L (98-107) 02/17/21 09:54 Carbon Dioxide 25 mmol/L (22-30) 02/17/21 09:54 Anion Gap 14 mmol/L 02/17/21 09:54 BUN 22 mg/dL (7-17) H 02/17/21 09:54 Creatinine 1.1 mg/dL (0.6-1.2) 02/17/21 09:54 Estimated GFR 47 ml/min 02/17/21 09:54 BUN/Creatinine Ratio 20 % 02/17/21 09:54 Glucose 95 mg/dL (65-100) 02/17/21 09:54 POC Glucose 136 mg/dL (70-105) H 02/15/21 16:23 Hemoglobin A1c 5.4 % (4-6) 02/17/21 09:54 Calcium 9.9 mg/dL (8.4-10.2) 02/17/21 09:54 Total Bilirubin 0.50 mg/dL (0.1-1.2) 02/17/21 09:54 AST 89 units/L (5-40) H 02/17/21 09:54 ALT 57 units/L (7-56) H 02/17/21 09:54 Alkaline Phosphatase 105 units/L (35-129) 02/17/21 09:54 Total Protein 7.5 g/dL (6.3-8.2) 02/17/21 09:54 Albumin 3.7 g/dL (3.9-5) L 02/17/21 09:54 Albumin/Globulin Ratio 1.0 % 02/17/21 09:54 Triglycerides 101 mg/dL (2-149) 02/17/21 09:54 Cholesterol 181 mg/dL (50-199) 02/17/21 09:54 LDL Cholesterol Direct 119 mg/dL (50-130) 02/17/21 09:54 HDL Cholesterol 48 mg/dL (40-59) 02/17/21 09:54 Cholesterol/HDL Ratio 3.77 % 02/17/21 09:54 TSH 1.050 mlU/mL (0.270-4.200) 02/17/21 09:54 Coronavirus (PCR) Negative (Negative) 02/25/21 Unknown Core Measure Documentation - Palliative Care Palliative Care/ Comfort Measures: Not Applicable - Core Measures Any of the following diagnoses?: none Exam - Constitutional Vitals: Temp Pulse Resp BP Pulse Ox 98.0 F 100 H 18 130/77 97 02/26/21 21:00 02/26/21 21:00 02/26/21 21:00 02/26/21 21:00 02/26/21 21:00 General appearance: Present: no acute distress - EENT Eyes: Present: EOM intact ENT: hearing intact, clear oral mucosa - Neck Neck: Present: normal ROM - Respiratory Respiratory effort: normal Plan Activity: advance as tolerated Weight Bearing Status: Weight Bear as Tolerated Care Plan Goals: maintain good and stable mental health Plan of Treatment: The patient should be compliant with medications, not to use drugs, and not to drink alcohol. The patient understands that if suicidal ideas, homicidal ideas or any endangering feeling arise, the patient should seek assistance including, but not limited to crisis hotline, and emergency room. Assessment: Dementia with Behavioral Disturbance Follow up with: PRIMARY CARE, [Primary Care Provider] - 7 Days Prescriptions: Melatonin [Melatonin 5MG TAB] 5 mg PO QHS PRN #30 tablet PRN Reason: Sleep Mirtazapine [Remeron 15mg TAB] 7.5 mg PO QHS #15 tablet QUEtiapine [SEROquel] 50 mg PO QHS #60 tablet VALPROIC ACID Liq [DepaKENE Liq] 500 mg PO BID #1 bottle risperiDONE [RisperDAL] 2 mg PO BID #120 tablet
[2021-02-27 09:26] VITALS: BP 123/61
[2021-02-27] MEDS: FLUTICASONE PROPIONATE NASAL SPRAY 16 GM NS SCH (09:26)
[2021-02-27] MEDS: risperiDONE 1 MG TAB PO SCH (09:27)
[2021-02-27] MEDS: CYANOCOBALAMIN (VIT B-12) 1000 MCG TAB PO SCH (09:27)
[2021-02-27] MEDS: GABAPENTIN 300 MG CAP PO SCH (09:28)
[2021-02-27] MEDS: VALPROIC ACID 250 MG/5 ML ORAL LIQD PO SCH (09:30)
[2021-02-27] MEDS: FERROUS SULFATE 325 MG TAB PO SCH (10:24)
== END 2021-02-27 10:44 | disposition home or self-care (01) | DRG 884 ==
LOC: 3A 07:13 → UNDOADMIN 07:13 → 5A 11:05
PROVIDERS: ADMIT Psychiatry & Neurology Psychiatry; ATTEND Psychiatry & Neurology Psychiatry
DX: F03.91 Unspecified dementia, unspecified severity, with behavioral disturbance (principal); I67.2 Cerebral atherosclerosis; M81.0 Age-related osteoporosis without current pathological fracture; I25.10 Atherosclerotic heart disease of native coronary artery without angina pectoris; Z88.0 Allergy status to penicillin; Z79.899 Other long term (current) drug therapy; Z20.822 Contact with and (suspected) exposure to COVID-19
CPT/HCPCS: 36415; 80053; 80061; 82962; 83036; 84443; 85025; G0378; A9270-GY; J3246; Q0162; U0003